=== PATIENT | female | born 1995 | race Caucasian/White ===

== ENCOUNTER → 2016-06-04 | Outpatient (CLI) | payer OTHER ==
--- NOTE | 2016-06-04 10:11 | US ---
EXAMINATION TYPE: US transvaginal DATE OF EXAM: 06/04/2016 8:32 AM COMPARISON: NONE CLINICAL HISTORY: 21-year-old female R10.2 Female Pelvic Pain, N83.20 Ovarian Cyst. felt enlarged ovary during pelvic exam TECHNIQUE: Multiple transvaginal sonographic images of the pelvis were obtained. Findings: Uterus: Anteverted measuring 9.0 x 5.0 x 5.7 cm. The myometrium is mildly heterogeneous. Endometrial Stripe: 0.8 cm. Right Ovary: 3.2 x 1.8 x 3.6 cm for volume of 10.5 mL. Follicular change is present. Left Ovary: 2.3 x 1.8 x 3.0 cm for a volume of 6.4 mL. Follicular change is present. No evident adnexal abnormality or cul-de-sac free fluid. IMPRESSION: Normal-sized ovaries with follicular change. No adnexal abnormality or pelvic free fluid.
== END | disposition home or self-care (01) ==
LOC: RADUSWWP 08:08
PROVIDERS: ATTEND Family Medicine
DX: R10.2 Pelvic and perineal pain (principal); N83.209 Unspecified ovarian cyst, unspecified side
CPT/HCPCS: 76830

== ENCOUNTER 2018-03-06 13:52 | Emergency (ER) | payer OTHER ==
[2018-03-06 14:02] VITALS: BP 96/56; PULSE 98; RESP 16; TEMP 97.5
[2018-03-06] MEDS ORDERED: ACETAMINOPHEN TAB 500 MG TAB PO STA (14:12)
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
== END 2018-03-06 15:48 | disposition home or self-care (01) ==
LOC: EC 13:52
DX: S29.9XXA Unspecified injury of thorax, initial encounter (principal); S59.901A Unspecified injury of right elbow, initial encounter; S00.12XA Contusion of left eyelid and periocular area, initial encounter; F17.200 Nicotine dependence, unspecified, uncomplicated; Y04.0XXA Assault by unarmed brawl or fight, initial encounter; Y92.009 Unspecified place in unspecified non-institutional (private) residence as the place of occurrence of the external cause
CPT/HCPCS: 99284

== ENCOUNTER 2020-07-01 04:08 | Inpatient (IN) | payer MEDICAID, OTHER ==
--- NOTE | 2020-07-01 04:09 | ED ---
Psych HPI - General Stated Complaint: Mental Health Time Seen by Provider: 07/01/20 04:09 Source: RN notes reviewed, old records reviewed Mode of arrival: EMS Limitations: no limitations - History of Present Illness Initial Comments: This is a 25-year-old female presented by EMS for suicidal and psychiatric illness. Patient does have superficial cuts to arrest and attempt has severe depression and attempt to harm herself MD Complaint: suicidal ideation, feels depressed -: unknown Associated Psychiatric Symptoms: depression, suicidal ideation History of same: Yes Quality: constant Improves With: none Associated Symptoms: denies other symptoms Treatments Prior to Arrival: placed on mental health hold If Self Harm: admits thoughts of self harm - Related Data Previous Rx's Medication Instructions Recorded Ibuprofen [Motrin] 600 mg PO Q6HR PRN #40 day 03/06/18 Allergies Allergy/AdvReac Type Severity Reaction Status Date / Time No Known Allergies Allergy Verified 07/01/20 04:18 Review of Systems ROS Statement: Those systems with pertinent positive or pertinent negative responses have been documented in the HPI. ROS Other: All systems not noted in ROS Statement are negative. Past Medical History Past Medical History: No Reported History History of Any Multi-Drug Resistant Organisms: None Reported Past Surgical History: Orthopedic Surgery Additional Past Surgical History / Comment(s): rt arm Past Psychological History: Anxiety, Bipolar, Schizophrenia Past Alcohol Use History: Occasional Past Drug Use History: Marijuana General Exam General appearance: alert, in no apparent distress, anxious Head exam: Present: atraumatic, normocephalic, normal inspection Eye exam: Present: normal appearance, PERRL, EOMI. Absent: scleral icterus, conjunctival injection, periorbital swelling ENT exam: Present: normal exam, mucous membranes moist Neck exam: Present: normal inspection. Absent: tenderness, meningismus, lymphadenopathy Respiratory exam: Present: normal lung sounds bilaterally. Absent: respiratory distress, wheezes, rales, rhonchi, stridor Cardiovascular Exam: Present: regular rate, normal rhythm, normal heart sounds. Absent: systolic murmur, diastolic murmur, rubs, gallop, clicks GI/Abdominal exam: Present: soft, normal bowel sounds. Absent: distended, tenderness, guarding, rebound, rigid Extremities exam: Present: normal inspection, full ROM, normal capillary refill. Absent: tenderness, pedal edema, joint swelling, calf tenderness Back exam: Present: normal inspection Neurological exam: Present: alert, oriented X3, CN II-XII intact Psychiatric exam: Present: normal affect, normal mood Skin exam: Present: warm, dry, intact, normal color. Absent: rash Course Vital Signs 07/01/20 04:10 Temperature 98.0 F Pulse Rate 115 H Respiratory 16 Rate Blood Pressure 147/101 O2 Sat by Pulse 100 Oximetry - Reevaluation(s) Reevaluation #1: 07/01/20 04:55 medically clear for psychiatric evaluation Medical Decision Making - Medical Decision Making 25 female seen in [facility] psychiatry, patient will be admitted for psychiatric evaluation and treatment Disposition Clinical Impression: Depression, Suicidal ideation Disposition: TRANSFER TO PSYCH HOSP/UNIT Condition: Fair Is patient prescribed a controlled substance at d/c from ED?: No Referrals: None,Stated [Primary Care Provider] - 1-2 days
[2020-07-01 07:15] LABS: Basophils % (A) 1 %; Eosinophils # (A) 0.1 k/uL (0-0.7); Eosinophils % (A) 1 %; HCT 45.7 % (34.0-46.0); HGB 15.2 gm/dL (11.4-16.0); Lymphocytes # (A) 2.4 k/uL (1.0-4.8); Lymphocytes % (A) 27 %; MCH 28.4 pg (25.0-35.0); MCHC 33.2 g/dL (31.0-37.0); MCV 85.6 fL (80.0-100.0); Mean Platelet Volume 9.2; Monocytes # (A) 0.3 k/uL (0-1.0); Monocytes % (A) 4 %; Neutrophils # (A) 6.2 k/uL (1.3-7.7); Neutrophils % (A) 68 %; Platelet Count 180 k/uL (150-450); RBC 5.34 m/uL (3.80-5.40); RDW 12.7 % (11.5-15.5); WBC 9.2 k/uL (3.8-10.6)
[2020-07-01 07:26] LABS: ALT 33 U/L (4-34); AST 28 U/L (14-36); African American GFR (CKD) >90 (>60 ml/min/1.73 sqM); Albumin 4.2 g/dL (3.5-5.0); Alkaline Phosphatase 66 U/L (38-126); Anion Gap 8 mmol/L; Blood Urea Nitrogen 13 mg/dL (7-17); Carbon Dioxide 25 mmol/L (22-30); Chloride 106 mmol/L (98-107); Glucose 103 mg/dL (74-99); Non-African American GFR(CKD) >90 (>60 ml/min/1.73 sqM); Potassium 3.9 mmol/L (3.5-5.1); Sodium 139 mmol/L (137-145); Total Bilirubin 0.6 mg/dL (0.2-1.3); Total Protein 7.1 g/dL (6.3-8.2)
[2020-07-01] MEDS ORDERED: MAG HYDROX/AL HYDROX/SIMETH 30 ML CUP PO PRN (07:33)
[2020-07-01] MEDS ORDERED: MAGNESIUM HYDROXIDE 2,400 MG/10 ML CUP PO PRN (07:33)
[2020-07-01] MEDS ORDERED: LORazepam 2 MG/ML INJ IM PRN (07:36)
[2020-07-01] MEDS ORDERED: haloperidoL 5 MG TAB PO PRN (07:37)
[2020-07-01] MEDS ORDERED: HALOPERIDOL LACTATE 5 MG/ML 1 ML VIAL IM PRN (07:37)
[2020-07-01] MEDS: NICOTINE 14MG/24HR PATCH TRANSDERM SCH ×2 (09:40→19:11)
[2020-07-01] MEDS: ACETAMINOPHEN TAB 325 MG TAB PO PRN ×2 (09:41→19:10)
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
[2020-07-01] MEDS: LORazepam 1 MG TAB PO PRN (19:10)
[2020-07-01] MEDS: DIVALPROEX 500 MG TABLET.DR PO SCH (22:44)
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
[2020-07-02 07:45] LABS: Basophils # (A) 0.1 k/uL (0-0.2); Basophils % (A) 1 %; Eosinophils # (A) 0.1 k/uL (0-0.7); Eosinophils % (A) 2 %; HCT 48.5 % (34.0-46.0); Lymphocytes # (A) 3.2 k/uL (1.0-4.8); Lymphocytes % (A) 38 %; MCH 29.2 pg (25.0-35.0); MCHC 33.1 g/dL (31.0-37.0); MCV 88.2 fL (80.0-100.0); Mean Platelet Volume 8.7; Monocytes # (A) 0.3 k/uL (0-1.0); Monocytes % (A) 4 %; Neutrophils # (A) 4.5 k/uL (1.3-7.7); Neutrophils % (A) 54 %; Platelet Count 174 k/uL (150-450); RDW 12.2 % (11.5-15.5); WBC 8.4 k/uL (3.8-10.6)
[2020-07-02 08:04] LABS: ALT 32 U/L (4-34); AST 28 U/L (14-36); African American GFR (CKD) >90 (>60 ml/min/1.73 sqM); Albumin 4.2 g/dL (3.5-5.0); Alkaline Phosphatase 63 U/L (38-126); Anion Gap 6 mmol/L; Blood Urea Nitrogen 11 mg/dL (7-17); Calcium 9.7 mg/dL (8.4-10.2); Carbon Dioxide 30 mmol/L (22-30); Chloride 104 mmol/L (98-107); Cholesterol 154 mg/dL (<200); Glucose 94 mg/dL (74-99); HDL Cholesterol 63 mg/dL (40-60); LDL Cholesterol,Calculated 79 mg/dL (0-99); Non-African American GFR(CKD) >90 (>60 ml/min/1.73 sqM); Potassium 4.4 mmol/L (3.5-5.1); Sodium 140 mmol/L (137-145); Total Bilirubin 0.8 mg/dL (0.2-1.3); Total Protein 7.3 g/dL (6.3-8.2); Triglycerides 59 mg/dL (<150)
[2020-07-02] MEDS: DIVALPROEX 500 MG TABLET.DR PO SCH (09:18)
[2020-07-02] MEDS: NICOTINE 14MG/24HR PATCH TRANSDERM SCH (09:21)
--- NOTE | 2020-07-02 12:14 | P.PN ---
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 Patient appears to have a disheveled appearance and appeared to be lethargic. She states that she came in the hospital because she thought that her boyfriend was cheating on her and brought another girl to a hotel room. She states that her boyfriend was able to explain this and showed her a text message. She claims that she has a history of cutting and has not been taking her Depakote for 2 months now and states that "it's because of covid I haven't been able to get into [facility]". She states that this time her mood has been gradually improving has some mild anxiety today. She states that she is feeling tired during the day and was willing to take her Depakote at nighttime instead. She states that she has been going to some groups. At this time patient denies any suicidal or homical ideations, intent or plan. Patient denies any auditory, visual hallucinations and denies any paranoia or delusions. Mental Status Exam: General Appearance: Patient appears to be lethargic, stated age is directable, and attempts to be cooperative. Disheveled appearance. Behavior: Patient is calmly seated without any agitated behavior. Speech: Patient's speech is fluent and nonpressured. Mood/Affect: Mood is depressed however improving mildly, affect is congruent and constricted. Suicidality/Homicidality: Patient denies having any suicidal or homicidal ideation intent or plan. Perceptions: Patient denies any visual hallucinations and denies any auditory hallucinations Though content/process: Poverty of content, vague at times. Logical. Memory and concentration: AOX3, grossly intact for the purposes of this session Judgment and insight: Poor, Improving mildly Assessment Adjustment disorder with disturbance of mood and behavior, rule out major depressive disorder recurrent vs. 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 Patient has signed adult voluntary form and medication consent and was placed in patient's chart. -Medications: changed depakote to night time dosing 1000mg qhs for mood stabilization. -When necessary Ativan and Haldol for agitation/aggression. -NRT - nicotine patch -SW on board for discharge planning. Encouraged the patient to participate in milieu. will attempt to work with patient and offer rehab vs outpt memo treatment otpions. likely d/c in 2-3 days.
[2020-07-02 16:40] LABS: Hemoglobin A1C 5.4 % (4.0-6.0)
[2020-07-02] MEDS: LORazepam 1 MG TAB PO PRN (20:49)
[2020-07-02] MEDS ORDERED: DIVALPROEX 500 MG TABLET.DR PO SCH (21:00)
[2020-07-03 00:11] LABS: Amorphous Sediment,Urine Occasional /hpf; Appearance,Urine Cloudy (Clear); Bacteria,Urine Rare /hpf; Bilirubin,Urine Negative (Negative); Blood,Urine Negative (Negative); Color,Urine Light Yellow; Glucose,Urine (UA) Negative (Negative); Ketones,Urine Negative (Negative); Leukocyte Esterase,Urine Moderate (Negative); Mucus,Urine Rare /hpf; Nitrite,Urine Negative (Negative); Protein,Urine Negative (Negative); RBC,Urine 2 /hpf (0-5); Specific Gravity,Urine 1.007 (1.001-1.035); Squamous Epithelial Cell,Urine 6 /hpf (0-4); Urobilinogen,Urine <2.0 mg/dL (<2.0); WBC,Urine 11 /hpf (0-5)
[2020-07-03 00:15] LABS: Amphetamine Screen,Urine Detected (NotDetected); Barbiturate Screen,Urine Not Detected (NotDetected); Benzodiazepines Screen,Urine Detected (NotDetected); Cocaine Screen,Urine Not Detected (NotDetected); Methadone Screen, Urine Not Detected (NotDetected); Opiate Screen,Urine Not Detected (NotDetected); Oxycodone Screen, Urine Not Detected (NotDetected); Phencyclidine Screen,Urine Not Detected (NotDetected); Tricyclic Antidepressant,Urine Not Detected (NotDetected); Urn Cannabinoid Scrn Not Detected (NotDetected)
[2020-07-03 07:17] VITALS: BP 127/83; PULSE 67; RESP 17; TEMP 98
[2020-07-03] MEDS: NICOTINE 14MG/24HR PATCH TRANSDERM SCH (09:09)
--- NOTE | 2020-07-03 09:49 | P.DS ---
Providers Date of admission: 07/01/20 07:31 Expected date of discharge: 07/03/20 Attending physician: Jeramie Olivier MD Consults: 07/01/20 07:33 Consult Physician Routine Consulting Provider: [facility] Consult Reason/Comments: h and p Do you want consulting provider notified?: Yes, Notify in am Primary care physician: Stated None - Discharge Diagnosis(es) (1) Adjustment disorder with mixed disturbance of emotions and conduct Current Visit: Yes Status: Acute Priority: High (2) Borderline personality disorder Current Visit: Yes Status: Acute Priority: High (3) Methamphetamine abuse Current Visit: Yes Status: Acute Priority: Medium (4) Cannabis use disorder, mild, abuse Current Visit: Yes Status: Acute Priority: Medium (5) Nicotine dependence Current Visit: Yes Status: Acute Priority: Low Hospital Course: Admission HPI: Admission note was completed by Dr. Taveras "She is a 25-year-old single female admitted to the psychiatric unit involuntarily. I reviewed the medical record and interviewed the patient. Her "ex-boyfriend" completed a Petition for hospitalization that read "cutting her arms with knife and razor blades. Text message to my phone I'm going to kill myself and video it. I'm going to kill everyone. lEizabeth's family told me she needs to attend the [facility] for her meds. She has been there once in 2 years." The patient was difficult interview and that her responses to questions were vague and nonspecific. She ruminated about misunderstanding a text message that she read on her boyfriend's phone. She mumbled something about him obtaining a motel room for a female friend. I had very difficult time understanding what had occurred but she apparently thought that he was having an affair with another woman. She became angry and distressed and cut her left forearm with a knife and a razor blade. She acknowledged that she texted her boyfriend that she was going kill herself and that she had threatened to kill others. She also perseverated about needing to get back on her medications and talked about having been prescribed Depakote and lithium in the past. She was otherwise unable to or unwilling to provide much information about her psychiatric treatment history or recent medications other than the Depakote and lithium. She acknowledged that she feels depressed but is currently denying suicidal ideation plan or intent. She denied that she cut herself in a suicide attempt. I could not get away clear history of a she has experienced periods of elevated mood or sustained irritability suggestive of lyle or hypomania. She complains of chronic anxiety that fluctuates in intensity but does not reach crescendo suggestive of panic attack. She denied experiencing such psychotic symptoms as auditory, visual or olfactory hallucinations, ideas of reference, thought insertion, thought broadcasting or thought control. She denied use of alcohol or drugs with the exception of tobacco and marijuana." Hospital course: Upon admission to the unit patient was initially directable and agreeable to commence treatment and signed adult voluntary form. Patient got along well with other patients on the unit and followed unit protocol. Patient was compliant with the medications and denied any side effects throughout hospital course. Patient was started on Depakote and titrated up to a dose of 750 mg daily at bedtime for mood stabilization/agitation. Patient spoke of her stressors and engaged in therapy both group and individual. Patient for the most part mainly isolated in her room during her hospitalization and claims that she needed to maintain a sleep schedule that is conducive to nighttime shift work as she claims that she will be going back to work. Patient was also seen by medical team for history and physical exam. Throughout the course of the hospitalization patient gradually improved with regards to mood, anxiety, irritability, sleep and demonstrated mild improvement in insight and judgment. On the day of discharge patient denied any suicidal or homicidal ideations intent or plan denied any auditory or visual hallucinations. Patient endorsed wanting to live for her health and her future. The patient denied any access to guns or weapons. Patient denied any paranoia and did not endorse any delusions. Patient does have a significant history of substance abuse and was counseled on abstaining from all substances including alcohol and marijuana. Patient was offered however declined inpatient substance-abuse rehab. Patient was also counseled on the medications and need for regular compliance and was encouraged to follow-up with their outpatient appointment for mental health and also for primary care. Prior to discharge a family meeting will be arranged with patient's boyfriend whom she lives with by social sciences department chair to answer any questions and ensure safety upon discharge. Mental status exam: General Appearance: Patient appears to be thin, stated age is alert, directable and attempts to be cooperative. Patient is in no acute distress and has improved hygiene and grooming Behavior: Patient is calmly seated without any agitated behavior. Speech: Patient's speech is fluent and nonpressured. Mood/Affect: Patient reports their mood is "better", affect is congruent Suicidality/Homicidality: Patient denies having any suicidal or homicidal ideation intent or plan. Perceptions: Patient denies any auditory or visual hallucinations. Though content/process: There is no evidence of any delusional thought content and thought process is linear and goal-directed. Memory and concentration: AOX3, grossly intact for the purposes of this session. Can spell "WORLD" backwards correctly. Judgment and insight: chronically poor, however has improved with guarded prognosis Impression: Adjustment disorder with disturbances of mood and conduct Borderline personality disorder Methamphetamine use disorder severe Cannabis use disorder Nicotine dependence Plan: -Continue with discharge today as patient has improved and stabilized psychiatrically and is not currently an imminent threat to herself and/or others. Patient will remain at chronically elevated risk for harm to self and/or others due to her impulsivity and polysubstance abuse. -Continue medications: Depakote 750 mg daily at bedtime for mood stabilization/agitation. -Patient was counseled on the need for medication compliance and appropriate follow-up at mental health and also primary care for medical issues. Patient verbalized understanding and agreed. -Social work to arrange for and conduct family meeting to ensure safety upon discharge and answer any questions/concerns. Social work also to arrange for cole garcias follow up appointments with [facility] for psychiatric care along with follow up with primary care provider. -Patient counseled on abstaining from recreational drugs and marijuana and alcohol. Was informed/educated on the adverse effects on their physical and mental health. Patient verbally agreed and understood. Patient was offered substance abuse treatment however declined at this time. -Patient was instructed to return to the hospital or seek immediate medical care if their psychiatric or medical symptoms do worsen or reoccur. Allergies Allergy/AdvReac Type Severity Reaction Status Date / Time No Known Allergies Allergy Verified 07/01/20 19:05 Laboratory Results WBC 8.4 k/uL (3.8-10.6) 07/02/20 07:10 RBC 5.50 m/uL (3.80-5.40) H 07/02/20 07:10 Hgb 16.0 gm/dL (11.4-16.0) 07/02/20 07:10 Hct 48.5 % (34.0-46.0) H 07/02/20 07:10 MCV 88.2 fL (80.0-100.0) 07/02/20 07:10 MCH 29.2 pg (25.0-35.0) 07/02/20 07:10 MCHC 33.1 g/dL (31.0-37.0) 07/02/20 07:10 RDW 12.2 % (11.5-15.5) 07/02/20 07:10 Plt Count 174 k/uL (150-450) 07/02/20 07:10 MPV 8.7 07/02/20 07:10 Neutrophils % 54 % 07/02/20 07:10 Lymphocytes % 38 % 07/02/20 07:10 Monocytes % 4 % 07/02/20 07:10 Eosinophils % 2 % 07/02/20 07:10 Basophils % 1 % 07/02/20 07:10 Neutrophils # 4.5 k/uL (1.3-7.7) 07/02/20 07:10 Lymphocytes # 3.2 k/uL (1.0-4.8) 07/02/20 07:10 Monocytes # 0.3 k/uL (0-1.0) 07/02/20 07:10 Eosinophils # 0.1 k/uL (0-0.7) 07/02/20 07:10 Basophils # 0.1 k/uL (0-0.2) 07/02/20 07:10 Sodium 140 mmol/L (137-145) 07/02/20 07:10 Potassium 4.4 mmol/L (3.5-5.1) 07/02/20 07:10 Chloride 104 mmol/L (98-107) 07/02/20 07:10 Carbon Dioxide 30 mmol/L (22-30) 07/02/20 07:10 Anion Gap 6 mmol/L 07/02/20 07:10 BUN 11 mg/dL (7-17) 07/02/20 07:10 Creatinine 0.70 mg/dL (0.52-1.04) 07/02/20 07:10 Est GFR (CKD-EPI)AfAm >90 (>60 ml/min/1.73 sqM) 07/02/20 07:10 Est GFR (CKD-EPI)NonAf >90 (>60 ml/min/1.73 sqM) 07/02/20 07:10 Glucose 94 mg/dL (74-99) 07/02/20 07:[address] Glu mg/dL 108 07/02/20 07:10 Hemoglobin A1c 5.4 % (4.0-6.0) 07/02/20 07:10 Calcium 9.7 mg/dL (8.4-10.2) 07/02/20 07:10 Total Bilirubin 0.8 mg/dL (0.2-1.3) 07/02/20 07:10 AST 28 U/L (14-36) 07/02/20 07:10 ALT 32 U/L (4-34) 07/02/20 07:10 Alkaline Phosphatase 63 U/L (38-126) 07/02/20 07:10 Total Protein 7.3 g/dL (6.3-8.2) 07/02/20 07:10 Albumin 4.2 g/dL (3.5-5.0) 07/02/20 07:10 Triglycerides 59 mg/dL (<150) 07/02/20 07:10 Cholesterol 154 mg/dL (<200) 07/02/20 07:10 LDL Cholesterol, Calc 79 mg/dL (0-99) 07/02/20 07:10 HDL Cholesterol 63 mg/dL (40-60) H 07/02/20 07:10 TSH 0.406 mIU/L (0.465-4.680) L 07/02/20 07:10 Urine Color Light Yellow 07/02/20 23:25 Urine Appearance Cloudy (Clear) H 07/02/20 23:25 Urine pH 7.0 (5.0-8.0) 07/02/20 23:25 Ur Specific [place] 1.007 (1.001-1.035) 07/02/20 23:25 Urine Protein Negative (Negative) 07/02/20 23:25 Urine Glucose (UA) Negative (Negative) 07/02/20 23:25 Urine Ketones Negative (Negative) 07/02/20 23:25 Urine Blood Negative (Negative) 07/02/20 23:25 Urine Nitrite Negative (Negative) 07/02/20 23:25 Urine Bilirubin Negative (Negative) 07/02/20 23:25 Urine Urobilinogen <2.0 mg/dL (<2.0) 07/02/20 23:25 Ur Leukocyte Esterase Moderate (Negative) H 07/02/20 23:25 Urine RBC 2 /hpf (0-5) 07/02/20 23:25 Urine WBC 11 /hpf (0-5) H 07/02/20 23:25 Ur Squamous Epith Cells 6 /hpf (0-4) H 07/02/20 23:25 Amorphous Sediment Occasional /hpf (None) H 07/02/20 23:25 Urine Bacteria Rare /hpf (None) H 07/02/20 23:25 Urine Mucus Rare /hpf (None) H 07/02/20 23:25 Urine HCG, Qual Not Detected (Not Detectd) 07/02/20 23:29 Urine Opiates Screen Not Detected (NotDetected) 07/02/20 23:29 Ur Oxycodone Screen Not Detected (NotDetected) 07/02/20 23:29 Urine Methadone Screen Not Detected (NotDetected) 07/02/20 23:29 Ur Propoxyphene Screen Not Detected (NotDetected) 07/02/20 23:29 Ur Barbiturates Screen Not Detected (NotDetected) 07/02/20 23:29 U Tricyclic Antidepress Not Detected (NotDetected) 07/02/20 23:29 Ur Phencyclidine Scrn Not Detected (NotDetected) 07/02/20 23:29 Ur Amphetamines Screen Detected (NotDetected) H 07/02/20 23:29 U Methamphetamines Scrn Detected (NotDetected) H 07/02/20 23:29 U Benzodiazepines Scrn Detected (NotDetected) H 07/02/20 23:29 Urine Cocaine Screen Not Detected (NotDetected) 07/02/20 23:29 U Marijuana (THC) Screen Not Detected (NotDetected) 07/02/20 23:29 Coronavirus (PCR) Not Detected (Not Detectd) 07/01/20 07:02 Vital Signs Temp 98.0 F 07/03/20 06:00 Pulse 67 07/03/20 06:00 Resp 17 07/03/20 06:00 BP 127/83 07/03/20 06:00 Pulse Ox 97 07/03/20 06:00 Patient Condition at Discharge: Stable Plan - Discharge Summary Discharge Rx Participant: No New Discharge Prescriptions: New Divalproex ER [Depakote ER] 750 mg PO HS 30 Days tab.er.24h Nicotine 14Mg/24Hr Patch [Habitrol] 1 patch TRANSDERM DAILY 14 Days patch Acetaminophen Tab [Tylenol] 650 mg PO Q4HR PRN tab PRN Reason: Pain/Discomfort Discharge Medication List Acetaminophen Tab [Tylenol] 650 mg PO Q4HR PRN tab 07/03/20 [Rx] Divalproex ER [Depakote ER] 750 mg PO HS 30 Days tab.er.24h 07/03/20 [Rx] Nicotine 14Mg/24Hr Patch [Habitrol] 1 patch TRANSDERM DAILY 14 Days patch 07/03/20 [Rx] Follow up Appointment(s)/Referral(s): None,Stated [Primary Care Provider] - 1-2 days Activity/Diet/Wound Care/Special Instructions: Activity and diet as tolerated. Avoid the use of street drugs and alcohol. Take all medications as prescribed. When you are in need of refills on your medications please contact your medical provider and/or outpatient psychiatrist to have this done. Please go to scheduled outpatient appointment for aftercare treatment. If symptoms return or become worse, call the crisis line at and/or go to the nearest emergency room for evaluation. Discharge Disposition: HOME SELF-CARE
[2020-07-03] MEDS ORDERED: DIVALPROEX 250 MG TABLET.DR PO SCH (21:00)
== END 2020-07-03 16:11 | disposition home or self-care (01) | DRG 882 ==
LOC: EC 04:08 → 3MHU 07:31
PROVIDERS: ADMIT Psychiatry & Neurology Psychiatry; ATTEND Psychiatry & Neurology Psychiatry
DX: F43.25 Adjustment disorder with mixed disturbance of emotions and conduct (principal); R45.851 Suicidal ideations; G40.909 Epilepsy, unspecified, not intractable, without status epilepticus; F60.3 Borderline personality disorder; F20.9 Schizophrenia, unspecified; F31.9 Bipolar disorder, unspecified; F12.10 Cannabis abuse, uncomplicated; Z20.822 Contact with and (suspected) exposure to COVID-19; F17.200 Nicotine dependence, unspecified, uncomplicated; F41.9 Anxiety disorder, unspecified; R45.87 Impulsiveness; F15.90 Other stimulant use, unspecified, uncomplicated; J34.89 Other specified disorders of nose and nasal sinuses; Y04.0XXA Assault by unarmed brawl or fight, initial encounter; Z91.5 Personal history of self-harm; Z56.0 Unemployment, unspecified; Z65.3 Problems related to other legal circumstances
CPT/HCPCS: 36415; 80053; 80061; 80306; 81001; 81025; 83036; 84443; 85025; 87635; 99285

== ENCOUNTER 2020-07-04 18:18 | Emergency (ER) | payer OTHER ==
[2020-07-04] MEDS ORDERED: HYDROcodone/APAP 5-325MG 1 EACH TAB PO STA (18:21)
[2020-07-04] MEDS ORDERED: IBUPROFEN 600 MG TAB PO STA (18:21)
[2020-07-04 18:28] VITALS: TEMP 98.3
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
[2020-07-04 20:43] VITALS: BP 126/84; PULSE 100; RESP 16
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
== END 2020-07-04 21:49 | disposition home or self-care (01) ==
LOC: EC 18:18
DX: T14.90XA Injury, unspecified, initial encounter (principal); F17.200 Nicotine dependence, unspecified, uncomplicated; V89.2XXA Person injured in unspecified motor-vehicle accident, traffic, initial encounter; Y92.410 Unspecified street and highway as the place of occurrence of the external cause
CPT/HCPCS: 36415; 70450; 72125; 84703; 99285

== ENCOUNTER 2022-03-25 22:53 | Emergency (ER) | payer OTHER ==
[2022-03-25 23:28] VITALS: BP 123/82; PULSE 100; RESP 20; TEMP 97
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
[2022-03-26] MEDS ORDERED: LIDOCAINE 1% INJ 10MG/ML (30 ML VIAL-PF) SQ ONE (00:50)
== END 2022-03-26 00:22 | disposition left against medical advice (07) ==
LOC: EC 22:53
DX: Z53.21 Procedure and treatment not carried out due to patient leaving prior to being seen by health care provider (principal)
CPT/HCPCS: 99499

== ENCOUNTER 2022-08-03 14:59 | Emergency (ER) | payer OTHER ==
[2022-08-03 15:13] VITALS: BP 156/97; PULSE 116; RESP 16; TEMP 98.2
[2022-08-03] MEDS ORDERED: SODIUM CHLORIDE 0.9% 1,000 ML IV STA (15:14)
[2022-08-03] MEDS ORDERED: Rhogam IMMUNE GLOBULIN 1,500 UNIT/1 ML IM ONE (15:30)
[2022-08-03 16:24] LABS: Appearance,Urine Cloudy (Clear); Bilirubin,Urine Negative (Negative); Blood,Urine Negative (Negative); Color,Urine Yellow; Glucose,Urine (UA) Negative (Negative); Ketones,Urine Negative (Negative); Leukocyte Esterase,Urine Small (Negative); Mucus,Urine Occasional /hpf; Nitrite,Urine Negative (Negative); Protein,Urine Negative (Negative); RBC,Urine <1 /hpf (0-5); Specific Gravity,Urine 1.015 (1.001-1.035); Squamous Epithelial Cell,Urine 7 /hpf (0-4); WBC,Urine <1 /hpf (0-5)
--- NOTE | 2022-08-03 16:26 | ED ---
Female Urogenital HPI - General Chief complaint: Vaginal Bleeding Stated complaint: 11 wks , vaginal bleeding Time Seen by Provider: 08/03/22 15:13 Source: patient Mode of arrival: ambulatory Limitations: no limitations - History of Present Illness Initial comments: Patient is a 27 year old A0 female at 11 weeks who presents to the emergency department for vaginal bleeding. Patient reports intermittent vaginal bleeding for the past 2 days. She has soaked one to 2 tampons a day. She has mild lower abdominal cramping. No fever, chills, nausea, vomiting, burning with urination. Patient states she has had vaginal bleeding during this previously. She has never received RhoGAM. She does not have an book packer but states she has had a normal ultrasound here in the emergency department. - Related Data Home Medications Medication Instructions Recorded Confirmed No Known Home Medications 06/20/22 06/20/22 Allergies Allergy/AdvReac Type Severity Reaction Status Date / Time chocolate flavor Allergy Anaphylaxis Verified 08/03/22 15:12 rubbing alcohol AdvReac Rash/Hives Uncoded 06/20/22 15:01 Review of Systems ROS Statement: Those systems with pertinent positive or pertinent negative responses have been documented in the HPI. ROS Other: All systems not noted in ROS Statement are negative. Past Medical History Past Medical History: Seizure Disorder Additional Past Medical History / Comment(s): She reported having a seizure 1 week ago and that she takes Depakote for that. lupus History of Any Multi-Drug Resistant Organisms: None Reported Past Surgical History: Orthopedic Surgery Additional Past Surgical History / Comment(s): rt arm Past Psychological History: Anxiety, Bipolar, Schizophrenia Smoking Status: Current every day smoker Past Alcohol Use History: Occasional Past Drug Use History: Marijuana General Exam Limitations: no limitations General appearance: alert, in no apparent distress Head exam: Present: atraumatic, normocephalic, normal inspection Eye exam: Present: normal appearance, PERRL, EOMI. Absent: scleral icterus, conjunctival injection, periorbital swelling ENT exam: Present: mucous membranes moist Respiratory exam: Present: normal lung sounds bilaterally. Absent: respiratory distress, wheezes, rales, rhonchi, stridor Cardiovascular Exam: Present: regular rate, normal rhythm, normal heart sounds. Absent: systolic murmur, diastolic murmur, rubs, gallop, clicks Neurological exam: Present: alert, oriented X3, CN II-XII intact Psychiatric exam: Present: normal affect, normal mood Skin exam: Present: warm, dry, intact, normal color. Absent: rash Course Vital Signs 08/03/22 15:11 Temperature 98.2 F Pulse Rate 116 H Respiratory 16 Rate Blood Pressure 156/97 O2 Sat by Pulse 100 Oximetry Medical Decision Making - Medical Decision Making Was pt. sent in by a medical professional or institution (, PA, BLOWER OPERATOR, urgent care, hospital, or [place] [facility] facility...) When possible be specific @ -[No] Did you speak to anyone other than the patient for history (EMS, parent, family, police, friend...)? What history was obtained from this source @ -[No] Did you review nursing and triage notes (agree or disagree)? Why? @ -[I reviewed and agree with nursing and triage notes] Were old charts reviewed (outside hosp., previous admission, EMS record, old EKG, old radiological studies, urgent care reports/EKG's, [place] [facility] facility records)? Report findings @ -reviewed US on 06/25 showing no definite intrauterine gestational sac. Differential Diagnosis (chest pain, altered mental status, abdominal pain women, abdominal pain men, vaginal bleeding, weakness, fever, dyspnea, syncope, headache, dizziness, GI bleed, back pain, seizure, CVA, palpatations, mental health)? @ -Differential Vaginal Bleeding: Spontaneous , threatened , molar , ectopic , bloody show, incompetent cervix, abruptioplacenta, placenta previa, uterine rupture, dysfunctional uterine bleeding, hemorrhage, uterine fibroids, this is not meant to be an all-inclusive list. EKG interpreted by me (3pts min.). @ -[As above] X-rays interpreted by me (1pt min.). @ -[None done] CT interpreted by me (1pt min.). @ -[None done] U/S interpreted by me (1pt. min.). @ -No. Ultrasound report shows no evidence of intrauterine gestational sac. What testing was considered but not performed or refused? (CT, X-rays, U/S, labs)? Why? @ -[None] What meds were considered but not given or refused? Why? @ -[None] Did you discuss the management of the patient with other professionals (professionals i.e. , PA, BLOWER OPERATOR, lab, RT, psych nurse, social worker assistant, iron pourer, teacher, compliance review officer, onsite case manager)? Give summary @ -[No] Was smoking cessation discussed for >3mins.? @ -[No] Was critical care preformed (if so, how long)? @ -[No] Were there social determinants of health that impacted care today? How? (Homelessness, low income, unemployed, alcoholism, drug addiction, transportation, low edu. Level, literacy, decrease access to med. care, skilled nursing, rehab)? @ -[No] Was there de-escalation of care discussed even if they declined (Discuss DNR or withdrawal of care, Hospice)? DNR status @ -[No] What co-morbidities impacted this encounter? (DM, HTN, Smoking, COPD, CAD, Cancer, CVA, ARF, Chemo, Hep., AIDS, mental health diagnosis, sleep apnea, morbid obesity)? @ -[None] Was patient admitted / discharged? Hospital course, mention meds given and route, prescriptions, significant lab abnormalities, going to OR and other pertinent info. @ -Patient presenting for threatened miscarriage, She is hemodynamically stable. The abdomen is soft and nontender. US shows no evidence of intrauterine gestational sac. The adnexa appear WNL. RhoGam ordered and when nurse entered room for administration, patient was gone. Patient eloped which is what she did during her last visit. Again patient did not get RhoGam or discharge instructions. Undiagnosed new problem with uncertain prognosis? @ -[No] Drug Therapy requiring intensive monitoring for toxicity (Heparin, Nitro, Insulin, Cardizem)? @ -[No] Were any procedures done? @ -[No] Diagnosis/symptom? @ -threatened miscarriage Acute, or Chronic, or Acute on Chronic? @ -acute Uncomplicated (without systemic symptoms) or Complicated (systemic symptoms)? @ -uncomplicated Side effects of treatment? @ -[No] Exacerbation, Progression, or Severe Exacerbation? @ -[No] Poses a threat to life or bodily function? How? (Chest pain, [place], [place], pneumonia, PE, COPD, DKA, ARF, appy, cholecystitis, CVA, Diverticulitis, Homicidal, Suicidal, threat to staff... and all critical care pts) @ -Not currently Dr. Zarco is my attending - Lab Data Lab Results 08/03/22 08/03/22 Range/Units 15:26 15:26 Urine Color Yellow Urine Appearance Cloudy H (Clear) Urine pH 7.0 (5.0-8.0) Ur Specific [place] 1.015 (1.001-1.035) Urine Protein Negative (Negative) Urine Glucose (UA) Negative (Negative) Urine Ketones Negative (Negative) Urine Blood Negative (Negative) Urine Nitrite Negative (Negative) Urine Bilirubin Negative (Negative) Urine Urobilinogen 3.0 (<2.0) mg/dL Ur Leukocyte Esterase Small H (Negative) Urine RBC <1 (0-5) /hpf Urine WBC <1 (0-5) /hpf Ur Squamous Epith Cells 7 H (0-4) /hpf Urine Mucus Occasional H (None) /hpf Blood Type O Negative Blood Type Recheck O Neg Bld Type Recheck Status No Antibody Screen NEGATIVE Disposition Clinical Impression: Threatened Disposition: Left Against Medical Advice Condition: Undetermined Referrals: None,Stated [Primary Care Provider] - 1-2 days
--- NOTE | 2022-08-03 16:56 | US ---
EXAMINATION TYPE: Transabdominal DATE OF EXAM: 08/03/2022 4:41 PM COMPARISON: NONE CLINICAL HISTORY: vaginal bleeding preg 11 weeks. Vaginal bleeding EXAM PERFORMED: Transabdominal (TA) EXAM MEASUREMENTS: GESTATIONAL AGE / DATING Physician Established: Not yet established Dates by LMP: unknown Dates by First Scan: unable to date on prior exam Dates by Current Scan for: No IUP seen at this time MATERNAL ANATOMY Uterus: 7.8 x 5.1 x 5.6cm, hypoechoic area left body of uterus = 1.5 x 1.0 x 1.2cm Right Ovary: 2.3 x 1.6 x 1.2cm, limited evaluation due to overlying bowel content Left Ovary: 3.9 x 1.7 x 1.6cm Post CDS / Adnexa: appears wnl Presence of free fluid: no Presence of corpus luteal cyst: no Presence of subchorionic bleed: no GESTATION / SURVEY IUP: No IUP seen at this time Date of LMP: unknown Beta HcG (if available): Not available at this time IMPRESSION: 1. No evidence of intrauterine gestational sac, correlate with B-hCG. If positive, this could represe nt early , ectopic or spontaneous . Follow up pelvic ultrasound in 5-7 day s and serial beta hCG studies are recommended. 2. Suspected underlying uterine fibroid.
== END 2022-08-03 17:40 | disposition left against medical advice (07) ==
LOC: EC 14:59
DX: O20.0 Threatened abortion (principal); O99.331 Smoking (tobacco) complicating pregnancy, first trimester; F17.200 Nicotine dependence, unspecified, uncomplicated; O99.321 Drug use complicating pregnancy, first trimester; F12.90 Cannabis use, unspecified, uncomplicated; Z91.018 Allergy to other foods; Z91.048 Other nonmedicinal substance allergy status; Z3A.11 11 weeks gestation of pregnancy
CPT/HCPCS: 86900; 86901; 86850; 81001; 76801; 99284; 96360; J2790

== ENCOUNTER 2023-04-05 00:30 | Outpatient (CLI) | payer OTHER ==
[2023-04-05] MEDS ORDERED: LACTATED RINGERS 1,000 ML IV SCH (01:15)
[2023-04-05 01:46] LABS: Creatinine,Urine Random 234.2 mg/dL
[2023-04-05 01:50] LABS: ALT 31 U/L (4-34); AST 35 U/L (14-36); African American GFR (CKD) >90 (>60 ml/min/1.73 sqM); Blood Urea Nitrogen 13 mg/dL (7-17); Glucose 73 mg/dL (74-99); LDH 235 U/L (120-246); Non-African American GFR(CKD) >90 (>60 ml/min/1.73 sqM); Uric Acid 7.1 mg/dL (3.7-7.4)
[2023-04-05 01:53] LABS: INR 0.8 (<1.2); Partial Thromboplastin Time 23.6 sec (22.0-30.0); Prothrombin Time 9.2 sec (10.0-12.5)
[2023-04-05 02:06] LABS: Basophils # (A) 0.1 k/uL (0-0.2); Basophils % (A) 1 %; Eosinophils # (A) 0.1 k/uL (0-0.7); Eosinophils % (A) 1 %; HCT 38.1 % (34.0-46.0); HGB 13.1 gm/dL (11.4-16.0); Lymphocytes # (A) 2.5 k/uL (1.0-4.8); Lymphocytes % (A) 22 %; MCH 29.8 pg (25.0-35.0); MCHC 34.3 g/dL (31.0-37.0); MCV 86.9 fL (80.0-100.0); Mean Platelet Volume 12.2; Monocytes # (A) 0.4 k/uL (0-1.0); Monocytes % (A) 4 %; Neutrophils # (A) 8.2 k/uL (1.3-7.7); Neutrophils % (A) 71 %; Platelet Count 131 k/uL (150-450); RBC 4.38 m/uL (3.80-5.40); RDW 13.6 % (11.5-15.5); WBC 11.5 k/uL (3.8-10.6)
[2023-04-05 02:22] LABS: Bacteria,Urine Rare /hpf; Mucus,Urine Occasional /hpf; RBC,Urine >182 /hpf (0-5); Squamous Epithelial Cell,Urine 55 /hpf (0-4); WBC,Urine 4 /hpf (0-5)
[2023-04-05 02:23] LABS: Cocaine Screen,Urine Not Detected (NotDetected); Phencyclidine Screen,Urine Not Detected (NotDetected); Urn Cannabinoid Scrn Not Detected (NotDetected)
[2023-04-05 02:24] LABS: Amphetamine Screen,Urine Detected (NotDetected); Barbiturate Screen,Urine Not Detected (NotDetected); Benzodiazepines Screen,Urine Not Detected (NotDetected); Methadone Screen, Urine Not Detected (NotDetected); Opiate Screen,Urine Not Detected (NotDetected); Oxycodone Screen, Urine Not Detected (NotDetected); Tricyclic Antidepressant,Urine Not Detected (NotDetected)
[2023-04-05 02:39] LABS: Color,Urine Yellow
[2023-04-05 02:40] LABS: Appearance,Urine Slightly Cloudy (Clear); Bilirubin,Urine Negative (Negative); Blood,Urine Large (Negative); Glucose,Urine (UA) Negative (Negative); Ketones,Urine Negative (Negative); Leukocyte Esterase,Urine Negative (Negative); Nitrite,Urine Negative (Negative); Protein,Urine 4+ (Negative); Urobilinogen,Urine <2.0 mg/dL (<2.0)
[2023-04-05 03:19] LABS: Large Platelets Present
[2023-04-05 04:09] VITALS: BP 169/116; PULSE 115; RESP 16; TEMP 98
--- NOTE | 2023-04-05 06:40 | US ---
EXAM: US Second or Third Trimester , Transabdominal CLINICAL HISTORY: ITS.REASON US Reason: no care TECHNIQUE: Real-time transabdominal obstetrical ultrasound of the maternal pelvis and a second or third trimester with image documentation. COMPARISON: No relevant prior studies available. FINDINGS: Fetus: A single intrauterine fetus Heart rate: 138 bpm. Presentation: Cephalic Placenta: Posterior. No abruption. Amniotic fluid: 16.22 cm. Maximal vertical pocket measures 7.2 cm. Anatomy: Intracranial/face anatomy not seen. Spinal anatomy not seen. Abdominal anatomy not seen. Extremities not seen. Four-chamber heart not seen. Umbilical cord not seen. BIOMETRICS Gestational age: 36 weeks and 1 day CHANDRAKANT: 05/02[birth year]2023 EFW: 2804 g BPD: 9.0 cm 36 weeks and 4 days HC: 32.24 cm 36 weeks and 3 days AC: 32.19 cm 36 weeks and 1 day FL: 624 cm 35 weeks and 1 day MATERNAL: Uterus: Unremarkable. No myometrial mass. Cervix: Unremarkable as visualized. Closed. Free fluid: No free fluid. IMPRESSION: 1. A single intrauterine fetus is identified in cephalic presentation with a sonographic gestational age of 36 weeks and 1 day. 2. Placenta is posterior with no evidence of previa or abruption. 3. Adequate amniotic fluid volume with CHUCK measuring 16.2 cm.
[2023-04-07 15:45] LABS: HIV 2 AB Non-Reactive (Non-Reactive); HIV AB P24 Non-Reactive (Non-Reactive); HIV P24 AG Non-Reactive (Non-Reactive)
== END 2023-04-05 03:00 | disposition left against medical advice (07) ==
LOC: FBPOP 00:30 → UNDOADMIN 02:30 → 4FBP 02:30 → UNDODISIN 03:00 → FBPOP 03:00
PROVIDERS: ATTEND Obstetrics & Gynecology
DX: Z53.9 Procedure and treatment not carried out, unspecified reason (principal)
CPT/HCPCS: 36415; 76805; 80306; 81001; 82565; 82570; 82947; 83615; 84156; 84450; 84460; 84520; 84550; 85025; 85384; 85610; 85730; 86762; 86780; 87340; 87390; 96360; 99215

== ENCOUNTER 2023-04-05 23:35 | Inpatient (IN) | payer OTHER ==
[2023-04-06] MEDS ORDERED: METHYLERGONOVINE 0.2 MG/ML 1 ML AMP IM PRN (01:07)
[2023-04-06] MEDS ORDERED: TERBUTALINE 1 MG/ML VIAL SQ PRN (01:07)
[2023-04-06] MEDS ORDERED: OXYTOCIN 10 UNIT/ML 1 ML VIAL IM PRN (01:07)
[2023-04-06] MEDS ORDERED: miSOPROStoL 200 MCG TAB PO PRN (01:07)
[2023-04-06] MEDS ORDERED: TRANEXAMIC 1,000 MG/100ML-NACL 1,000 MG in EMPTY BAG 1 BAG IV PRN (01:07)
[2023-04-06] MEDS ORDERED: LIDOCAINE 0.5% (PF) 5 MG/ML (50 ML SDV) SQ PRN (01:07)
[2023-04-06] MEDS ORDERED: CARBOPROST TROMETHAMINE 250 MCG/ML 1 ML AMP IM PRN (01:07)
[2023-04-06] MEDS ORDERED: OXYTOCIN 30 UNITS/500 ML NS 30 UNIT in SALINE 1 500ML.BAG IV SCH ×2 (01:15→05:30)
[2023-04-06] MEDS: LACTATED RINGERS 1,000 ML IV SCH ×2 (01:25→01:27)
[2023-04-06] MEDS ORDERED: PENICILLIN G POTASSIUM 5,000,000 UNIT in DEXTROSE 5% IN WATER 100 ML IVPB ONE ×2 (01:30)
[2023-04-06 01:39] LABS: Basophils # (A) 0.1 k/uL (0-0.2); Basophils % (A) 1 %; Eosinophils # (A) 0.1 k/uL (0-0.7); Eosinophils % (A) 1 %; HCT 38.3 % (34.0-46.0); HGB 12.9 gm/dL (11.4-16.0); Lymphocytes # (A) 2.2 k/uL (1.0-4.8); Lymphocytes % (A) 21 %; MCH 29.5 pg (25.0-35.0); MCHC 33.7 g/dL (31.0-37.0); MCV 87.6 fL (80.0-100.0); Mean Platelet Volume 12.8; Monocytes # (A) 0.3 k/uL (0-1.0); Monocytes % (A) 3 %; Neutrophils # (A) 7.6 k/uL (1.3-7.7); Neutrophils % (A) 73 %; Platelet Count 121 k/uL (150-450); RBC 4.38 m/uL (3.80-5.40); RDW 13.6 % (11.5-15.5); WBC 10.4 k/uL (3.8-10.6)
[2023-04-06] MEDS ORDERED: ROPIVACAINE 5 MG/ML 30 ML VIAL ONE (01:41)
[2023-04-06] MEDS ORDERED: SODIUM CHLORIDE 0.9% 250 ML BAG ONE (01:41)
[2023-04-06] MEDS ORDERED: fentaNYL (PF) 50 MCG/ML 5 ML AMP ONE (01:41)
[2023-04-06 03:05] LABS: Amphetamine Screen,Urine Detected (NotDetected); Barbiturate Screen,Urine Not Detected (NotDetected); Benzodiazepines Screen,Urine Not Detected (NotDetected); Cocaine Screen,Urine Not Detected (NotDetected); Methadone Screen, Urine Not Detected (NotDetected); Opiate Screen,Urine Not Detected (NotDetected); Oxycodone Screen, Urine Not Detected (NotDetected); Phencyclidine Screen,Urine Not Detected (NotDetected); Tricyclic Antidepressant,Urine Not Detected (NotDetected); Urn Cannabinoid Scrn Not Detected (NotDetected)
[2023-04-06] MEDS ORDERED: PENICILLIN G POTASSIUM 2,500,000 UNIT in DEXTROSE 5% IN WATER 100 ML IVPB SCH ×2 (04:00)
[2023-04-06] MEDS ORDERED: BENZOCAINE/MENTHOL SPRAY 1 GM/SPRAY AEROSOL TOPICAL PRN (05:17)
[2023-04-06] MEDS ORDERED: diphenhydrAMINE 50 MG/ML 1 ML VIAL IVP PRN ×2 (05:17)
[2023-04-06] MEDS ORDERED: diphenhydrAMINE 50 MG CAP PO PRN (05:17)
[2023-04-06] MEDS ORDERED: HYDROcodone/APAP 5-325MG 1 EACH TAB PO PRN (05:17)
[2023-04-06] MEDS ORDERED: ZOLPIDEM 5 MG TAB PO PRN (05:17)
[2023-04-06] MEDS ORDERED: diphenhydrAMINE 25 MG CAP PO PRN (05:17)
[2023-04-06] MEDS ORDERED: HYDROcodone/APAP 7.5-325MG 1 EACH TAB PO PRN (05:17)
[2023-04-06] MEDS ORDERED: HYDROCORTISONE 2.5% RECTAL CREAM 30 GM TUBE RECTAL PRN (05:17)
[2023-04-06] MEDS ORDERED: SIMETHICONE 80 MG CHEWABLE PO PRN (05:17)
--- NOTE | 2023-04-06 05:33 | P.HPOB ---
History of Present Illness H&P Date: 04/06/23 Chief Complaint: 36-3/7 weeks, labor, no care The patient is a 28-year-old 7 para 4023 admitted at 36-3/7 weeks by an early ultrasound done elsewhere, possibly in [place]. She is admitted in active labor with all signs reassuring, category 1 heart tracing. Her has been reportedly uncomplicated though she has had no care here or anywhere else. Group B strep status is unknown. Obstetrical history: 7 para 4023 with current statistics listed in history of present illness. EDC of 05/01/2022 was determined by an early ultrasound done elsewhere. Laboratory workup determined here in triage yesterday demonstrates a blood type of O- with a negative antibody screen. Rubella status is immune. The remainder of her laboratory workup has been negative. Group B strep status is unknown. Gynecologic history: Unremarkable with no apparent history of STDs. Review of Systems Review of systems is confined to history of present illness. Past Medical History Past Medical History: Seizure Disorder Additional Past Medical History / Comment(s): She reported having a seizure 1 week ago and that she takes Depakote for that. lupus History of Any Multi-Drug Resistant Organisms: None Reported Past Surgical History: Orthopedic Surgery Additional Past Surgical History / Comment(s): rt arm Smoking Status: Current every day smoker Medications and Allergies Home Medications Medication Instructions Recorded Confirmed Type Vit No.179/Iron/Folic 1 tab PO DAILY 04/05/23 04/05/23 History [ Tablet] Allergies Allergy/AdvReac Type Severity Reaction Status Date / Time chocolate flavor Allergy Anaphylaxis Verified 08/03/22 15:12 rubbing alcohol AdvReac Rash/Hives Uncoded 06/20/22 15:01 Exam Vital Signs Temp Pulse Resp BP Pulse Ox 04/06/23 02:38 97.3 F L 90 18 169/115 100 Intake and Output 04/05/23 04/05/23 04/06/23 14:59 22:59 06:59 Other: Weight 75.75 kg In general, this is a well-developed, well-nourished white female in no acute distress. Her heart has a regular rhythm and rate without murmur. Her lungs a re clear to auscultation bilaterally in all ha. Her abdomen is gravid, nondistended, has normal active bowel sounds, soft, nontender, without any palpable masses aside from uterine fundus. Her extremities without any cyanosis, clubbing, though there is 2+ bilateral pitting edema. Digital cerv ical examination demonstrates her cervix to be 5 cm dilated, 90% effaced, vertex in presentation at -1-0 station. Spontaneous rupture of membranes is confirmed by amnio sure. Results Result Diagrams: 04/06/23 00:07 Abnormal Lab Results - Last 24 Hours (Table) 04/06/23 04/06/23 Range/Units 00:07 01:15 Plt Count 121 L (150-450) k/uL Ur Amphetamines Screen Detected H (NotDetected) U Methamphetamines Scrn Detected H (NotDetected) Assessment and Plan (1) No care in current Current Visit: Yes Status: Acute Code(s): O09.30 - SUPRVSN OF PREG W INSUFFICIENT ANTENAT CARE, UNSP TRIMESTER SNOMED Code(s): 221265820 (2) Active labor at term Current Visit: Yes Status: Acute Code(s): RTN9598 - SNOMED Code(s): 97499769 Plan: The patient is admitted for active management of labor. She will have close maternal and surveillance and expectant management will be practiced. She is a good candidate for either IV or epidural analgesia, whichever she may choose.
--- NOTE | 2023-04-06 05:36 | P.PROBDLV ---
Vaginal Delivery Note - . Vaginal Delivery Note: The patient is a 28-year-old 7 para 4023 admitted at 36-3/7 weeks by dating parameters from an early ultrasound done elsewhere. She is admitted in active labor with documented spontaneous rupture of membranes. Her has been reportedly uncomplicated though she has had no care. On labor and delivery, all signs reassuring with category 1 heart rate tracing. She had an epidural catheter placed for analgesia and then progressed fairly quickly to complete and +3 station. She pushed over the course of 1 contraction to a normal spontaneous vaginal delivery of a viable 5 lbs. 12 oz. baby boy with Apgars of 9 at 1 minute and 9 at 5 minutes delivered in the occiput anterior position. There was a tight nuchal cord times to which was reduced following delivery of the . The placenta was delivered spontaneously, intact, and grossly normal, with a grossly normal, marginally inserted three-vessel cord. A small second-degree midline perineal laceration was noted and was repaired in standard fashion with 3-0 Vicryl complications. Estimated blood loss for the case is approximately 150 mL. There were no complications. All sponge, instrument, needle counts were correct. Both mother and are resting comfortably in recovery.
[2023-04-06] MEDS: IBUPROFEN 600 MG TAB PO PRN ×2 (07:39→16:10)
[2023-04-06] MEDS: SENNOSIDES-DOCUSATE SODIUM 1 EACH TAB PO SCH ×2 (07:39→20:17)
[2023-04-06] MEDS ORDERED: LABETALOL 100 MG TAB PO SCH (09:00)
[2023-04-06] MEDS ORDERED: NICOTINE 14MG/24HR PATCH TRANSDERM STA (15:04)
[2023-04-06] MEDS ORDERED: Rhogam IMMUNE GLOBULIN 1,500 UNIT/1 ML IM ONE (16:02)
[2023-04-06] MEDS: LABETALOL 100 MG TAB PO SCH (16:10)
[2023-04-06] MEDS: NICOTINE GUM (POLACRILEX) 2 MG GUM BUCCAL PRN (16:20)
[2023-04-06] MEDS: ACETAMINOPHEN TAB 325 MG TAB PO PRN (20:17)
[2023-04-07] MEDS: LABETALOL 100 MG TAB PO SCH ×4 (00:43→22:04)
[2023-04-07] MEDS: IBUPROFEN 600 MG TAB PO PRN ×4 (00:47→22:04)
[2023-04-07 07:43] LABS: Basophils % (A) 0 %; Eosinophils # (A) 0.2 k/uL (0-0.7); Eosinophils % (A) 2 %; HCT 33.4 % (34.0-46.0); HGB 11.2 gm/dL (11.4-16.0); Lymphocytes # (A) 2.5 k/uL (1.0-4.8); Lymphocytes % (A) 31 %; MCH 29.6 pg (25.0-35.0); MCHC 33.7 g/dL (31.0-37.0); MCV 87.9 fL (80.0-100.0); Mean Platelet Volume 12.5; Monocytes # (A) 0.3 k/uL (0-1.0); Monocytes % (A) 3 %; Neutrophils # (A) 5.1 k/uL (1.3-7.7); Neutrophils % (A) 62 %; RDW 13.7 % (11.5-15.5); WBC 8.2 k/uL (3.8-10.6)
[2023-04-07] MEDS: SENNOSIDES-DOCUSATE SODIUM 1 EACH TAB PO SCH ×2 (08:55→22:01)
[2023-04-07 08:56] LABS: Large Platelets Present; Platelet Count 95 k/uL (150-450)
--- NOTE | 2023-04-07 09:23 | P.PNOBGVD ---
Subjective - Subjective Interval history: Patient does admit to headache and some blurry vision today. Patient reports: Reports appetite normal, Reports voiding normally, Reports pain well controlled, Reports ambulating normally : doing well, in NICU Objective - Latest Vital Signs Latest vital signs: Vital Signs Temp Pulse Resp BP Pulse Ox 04/07/23 00:00 95 16 134/73 98 04/06/23 20:00 98.5 F 114 H 16 145/80 98 04/06/23 18:01 128/81 04/06/23 16:00 98.3 F 102 H 16 154/98 98 04/06/23 11:52 98.7 F 110 H 18 142/95 98 Intake and Output 04/06/23 04/07/23 04/07/23 22:59 06:59 14:59 Other: # Voids 1 - Exam Extremities: Present: normal, edema (2+ bilateral pitting edema to below the knee.) Abdomen: Present: normal appearance, soft Uterus: Present: normal, firm (The uterine fundus is tonic and nontender below the umbilicus.) - Labs Labs: Abnormal Lab Results - Last 24 Hours (Table) 04/07/23 Range/Units 06:53 Hgb 11.2 L (11.4-16.0) gm/dL Hct 33.4 L (34.0-46.0) % Plt Count 95 L (150-450) k/uL Assessment and Plan (1) No care in current Current Visit: Yes Status: Acute Code(s): O09.30 - SUPRVSN OF PREG W INSUFFICIENT ANTENAT CARE, UNSP TRIMESTER SNOMED Code(s): 889584482 (2) Active labor at term Current Visit: Yes Status: Acute Code(s): RGF0535 - SNOMED Code(s): 51105306 (3) hypertension Current Visit: Yes Status: Acute Code(s): O16.5 - UNSPECIFIED MATERNAL HYPERTENSION, COMP THE PUERPERIUM SNOMED Code(s): 15881997 (4) Normal spontaneous vaginal delivery Current Visit: Yes Status: Acute Code(s): O80 - ENCOUNTER FOR FULL-TERM UNCOMPLICATED DELIVERY SNOMED Code(s): 79644622 Plan: Continue routine care. We will recheck labs for preeclampsia acutely given her continued swelling and secondary complaints of headache with blurry vision along with the elevated blood pressures requiring labetalol 100 mg 3 times a day.
[2023-04-07 10:01] LABS: INR 0.8 (<1.2); Partial Thromboplastin Time 23.9 sec (22.0-30.0); Prothrombin Time 9.3 sec (10.0-12.5)
[2023-04-07 10:15] LABS: ALT 19 U/L (4-34); AST 29 U/L (14-36); African American GFR (CKD) >90 (>60 ml/min/1.73 sqM); Blood Urea Nitrogen 11 mg/dL (7-17); LDH 241 U/L (120-246); Non-African American GFR(CKD) >90 (>60 ml/min/1.73 sqM); Uric Acid 6.7 mg/dL (3.7-7.4)
[2023-04-07 14:45] LABS: N. gonorrhoeae,PCR Negative (Negative)
[2023-04-07 15:18] LABS: C. trachomatis,PCR Negative (Negative)
[2023-04-08] MEDS: IBUPROFEN 600 MG TAB PO PRN ×3 (08:22→22:43)
[2023-04-08] MEDS: SENNOSIDES-DOCUSATE SODIUM 1 EACH TAB PO SCH ×2 (08:23→21:21)
[2023-04-08] MEDS: LABETALOL 100 MG TAB PO SCH ×3 (08:23→21:22)
[2023-04-08 08:39] LABS: Basophils % (A) 1 %; Eosinophils # (A) 0.2 k/uL (0-0.7); Eosinophils % (A) 2 %; HCT 34.1 % (34.0-46.0); HGB 11.4 gm/dL (11.4-16.0); Lymphocytes # (A) 1.9 k/uL (1.0-4.8); Lymphocytes % (A) 22 %; MCH 29.3 pg (25.0-35.0); MCHC 33.4 g/dL (31.0-37.0); MCV 87.8 fL (80.0-100.0); Mean Platelet Volume 11.1; Monocytes # (A) 0.2 k/uL (0-1.0); Monocytes % (A) 3 %; Neutrophils # (A) 6.1 k/uL (1.3-7.7); Neutrophils % (A) 72 %; RBC 3.88 m/uL (3.80-5.40); RDW 13.7 % (11.5-15.5); WBC 8.5 k/uL (3.8-10.6)
[2023-04-08 08:43] LABS: Platelet Count 95 k/uL (150-450)
[2023-04-08] MEDS ORDERED: CALCIUM GLUCONATE 1 GM/10 ML VIAL IV PRN (09:04)
[2023-04-08] MEDS ORDERED: LABETALOL 5 MG/ML VIAL MDV IVP PRN ×3 (09:04)
[2023-04-08] MEDS ORDERED: hydrALAZINE HCL 20 MG/ML 1 ML VIAL IVP PRN (09:04)
[2023-04-08] MEDS ORDERED: MAGNESIUM SULFATE-WATER PMX 4 GM in WATER FOR INJECTION 1 100ML.BAG IVPB ONE (09:04)
--- NOTE | 2023-04-08 09:10 | P.PNOBGVD ---
Subjective - Subjective Interval history: The patient continues to report headache and blurry vision. She still has mo derate bilateral lower extremity edema which has not resolved. Patient reports: Reports appetite normal, Reports voiding normally, Reports pain well controlled, Reports ambulating normally : doing well, in NICU (For scoring.) Objective - Latest Vital Signs Latest vital signs: Vital Signs Temp Pulse Resp BP Pulse Ox 04/08/23 04:00 98.1 F 97 18 151/90 04/08/23 00:00 98.2 F 88 18 143/85 04/07/23 19:46 97.5 F L 97 18 138/84 100 04/07/23 16:00 98.9 F 98 15 138/82 99 04/07/23 10:49 129/84 Intake and Output 04/07/23 04/08/23 04/08/23 22:59 06:59 14:59 Other: # Voids 1 1 - Exam Extremities: Present: normal, edema (2+ bilateral lower extremity edema to just below the knees.) Abdomen: Present: normal appearance, soft Uterus: Present: normal, firm (The uterine fundus is tonic and only tender below the umbilicus.) - Labs Labs: Abnormal Lab Results - Last 24 Hours (Table) 04/07/23 04/08/23 Range/Units 09:23 08:16 Plt Count 95 L (150-450) k/uL PT 9.3 L (10.0-12.5) sec Assessment and Plan (1) No care in current Current Visit: Yes Status: Acute Code(s): O09.30 - SUPRVSN OF PREG W INSUFFICIENT ANTENAT CARE, UNSP TRIMESTER SNOMED Code(s): 297015894 (2) Active labor at term Current Visit: Yes Status: Acute Code(s): SWX5160 - SNOMED Code(s): 66583678 (3) hypertension Current Visit: Yes Status: Acute Code(s): O16.5 - UNSPECIFIED MATERNAL HYPERTENSION, COMP THE PUERPERIUM SNOMED Code(s): 55121253 (4) Normal spontaneous vaginal delivery Current Visit: Yes Status: Acute Code(s): O80 - ENCOUNTER FOR FULL-TERM UNCOMPLICATED DELIVERY SNOMED Code(s): 29288388 Plan: Repeat CBC this morning continued to demonstrate low platelet count and the patient continues to have secondary symptoms to include headache and blurry vision as well as hypertension requiring treatment with labetalol 3 times daily. I am concerned that this may represent an unusual presentation for HELLP syndrome. As a result, she will have IV restarted with maintenance fluids but will receive a 4 g bolus of IV magnesium to be followed by 2 g per hour for the next 24 hours. She will have close surveillance with accurate intake and output measurements and typical seizure precautions. She can continue a regular diet at this point. I have discussed these findings with the patient to understands and agrees with the plan.
[2023-04-08] MEDS: LACTATED RINGERS 1,000 ML IV SCH (10:20)
[2023-04-08] MEDS: MAGNESIUM SULFATE-WATER PMX 20 GM in WATER FOR INJECTION 1 500ML.BAG IV SCH ×2 (10:45→21:22)
[2023-04-09] MEDS: LACTATED RINGERS 1,000 ML IV SCH (07:25)
[2023-04-09] MEDS: MAGNESIUM SULFATE-WATER PMX 20 GM in WATER FOR INJECTION 1 500ML.BAG IV SCH (07:25)
[2023-04-09] MEDS: LABETALOL 100 MG TAB PO SCH ×2 (07:49→14:28)
[2023-04-09] MEDS: ACETAMINOPHEN TAB 325 MG TAB PO PRN (07:51)
[2023-04-09] MEDS: SENNOSIDES-DOCUSATE SODIUM 1 EACH TAB PO SCH ×2 (07:58→20:28)
--- NOTE | 2023-04-09 09:16 | P.PNOBGVD ---
Subjective - Subjective Interval history: The patient reports that headache and blurry vision have dissipated to some e xtent. Edema has also improved. Patient reports: Reports appetite normal, Reports voiding normally, Reports pain well controlled, Reports ambulating normally [place]: doing well, in NICU Objective - Latest Vital Signs Latest vital signs: Vital Signs Temp Pulse Resp BP Pulse Ox 04/09/23 07:47 98.1 F 90 16 180/107 04/09/23 04:00 87 18 139/93 98 04/09/23 00:00 97.4 F L 81 18 159/90 99 04/08/23 22:35 91 18 149/91 99 04/08/23 20:00 91 18 157/98 98 04/08/23 16:15 78 16 163/83 04/08/23 15:24 80 16 161/90 04/08/23 14:15 97.4 F L 74 16 144/90 04/08/23 13:15 97.6 F 106 H 16 135/73 95 04/08/23 12:15 96 16 148/72 97 04/08/23 11:45 83 16 111/68 96 04/08/23 11:15 82 16 146/70 97 04/08/23 10:53 89 16 139/71 96 04/08/23 10:38 85 16 125/58 97 04/08/23 10:23 97.5 F L 80 16 120/64 97 Intake and Output 04/08/23 04/09/23 04/09/23 22:59 06:59 14:59 Intake Total 950 500 Output Total 2300 1200 1800 Balance -1350 -1200 -1300 Intake: Intake, IV Titration 950 500 Amount Lactated Ringers 1,000 ml 300 @ 50 mls/hr IV .Q20H SVEN Rx#:[id number] Magnesium Sulfate-Water 650 500 Pmx 20 gm In Water For Injection 1 500ml.bag @ 2 GM/HR 50 mls/hr IV .Q10H SVEN Rx#:[id number] Magnesium Sulfate-Water 0 Pmx 4 gm In Water For Injection 1 100ml.bag @ 300 mls/hr IVPB ONCE ONE Rx#:[id number] Output: Urine 2300 1200 1800 Other: # Voids 3 - Exam Extremities: Present: normal Abdomen: Present: normal appearance, soft Uterus: Present: normal, firm (The uterine fundus is tonic and nontender below the umbilicus.) Assessment and Plan (1) No care in current Current Visit: Yes Status: Acute Code(s): O09.30 - SUPRVSN OF PREG W INSUFFICIENT ANTENAT CARE, UNSP TRIMESTER SNOMED Code(s): 850187276 (2) Active labor at term Current Visit: Yes Status: Acute Code(s): HSA3091 - SNOMED Code(s): 28317823 (3) hypertension Current Visit: Yes Status: Acute Code(s): O16.5 - UNSPECIFIED MATERNAL HYPERTENSION, COMP THE PUERPERIUM SNOMED Code(s): 25964931 (4) Normal spontaneous vaginal delivery Current Visit: Yes Status: Acute Code(s): O80 - ENCOUNTER FOR FULL-TERM UNCOMPLICATED DELIVERY SNOMED Code(s): 20627728 (5) Pre-eclampsia, Current Visit: Yes Status: Acute Code(s): O14.95 - UNSPECIFIED PRE- ECLAMPSIA, COMPLICATING THE PUERPERIUM SNOMED Code(s): 676454326 Plan: The patient has had magnesium sulfate infusion for approximately 24 hours and will be discontinued at 24 hours. We will continue to monitor her blood pre ssures closely and recheck her CBC tomorrow morning. She will continue to remain in the hospital until stable for discharge.
[2023-04-09] MEDS ORDERED: LABETALOL 100 MG TAB PO ONE (14:45)
[2023-04-09] MEDS: IBUPROFEN 600 MG TAB PO PRN (20:16)
[2023-04-09] MEDS ORDERED: LABETALOL 200 MG TAB PO SCH (22:00)
[2023-04-09] MEDS: LABETALOL 200 MG TAB PO SCH (23:28)
[2023-04-10] MEDS: LACTATED RINGERS 1,000 ML IV SCH (04:44)
[2023-04-10 07:29] LABS: Basophils % (A) 1 %; Eosinophils # (A) 0.2 k/uL (0-0.7); Eosinophils % (A) 3 %; HCT 34.6 % (34.0-46.0); HGB 11.5 gm/dL (11.4-16.0); Lymphocytes # (A) 2.1 k/uL (1.0-4.8); Lymphocytes % (A) 28 %; MCH 29.2 pg (25.0-35.0); MCHC 33.4 g/dL (31.0-37.0); MCV 87.6 fL (80.0-100.0); Mean Platelet Volume 10.1; Monocytes # (A) 0.3 k/uL (0-1.0); Monocytes % (A) 4 %; Neutrophils # (A) 4.7 k/uL (1.3-7.7); Neutrophils % (A) 63 %; Platelet Count 135 k/uL (150-450); RBC 3.95 m/uL (3.80-5.40); RDW 13.9 % (11.5-15.5); WBC 7.5 k/uL (3.8-10.6)
[2023-04-10] MEDS: LABETALOL 200 MG TAB PO SCH ×3 (08:11→19:52)
[2023-04-10] MEDS: SENNOSIDES-DOCUSATE SODIUM 1 EACH TAB PO SCH ×2 (08:50→19:41)
--- NOTE | 2023-04-10 11:28 | P.PNOBGVD ---
Subjective - Subjective Interval history: The patient reports feeling somewhat better today but still with occasional h eadache and blurry vision. She continues to have significant edema in her lower extremities. She denies any other localizing symptoms to include shortness of breath. Patient reports: Reports appetite normal, Reports voiding normally, Reports pain well controlled, Reports ambulating normally [place]: doing well, in NICU Objective - Latest Vital Signs Latest vital signs: Vital Signs Temp Pulse Resp BP Pulse Ox 04/10/23 08:52 74 18 124/79 04/10/23 08:00 98.4 F 54 L 18 169/86 98 04/10/23 04:41 97.3 F L 70 16 150/82 98 04/09/23 23:35 96.9 F L 81 16 131/75 98 04/09/23 20:26 96.9 F L 75 18 147/85 100 04/09/23 17:53 94 16 146/92 04/09/23 16:00 98.9 F 81 16 144/92 04/09/23 13:45 98.4 F 92 16 152/113 Intake and Output 04/09/23 04/10/23 04/10/23 22:59 06:59 14:59 Output Total 800 Balance -800 Output: Urine 800 Other: # Voids 1 1 1 - Exam Extremities: Present: normal, edema (Grade 2+ pitting edema to just below the knee bilaterally.) Abdomen: Present: normal appearance, soft Uterus: Present: normal, firm (The uterine fundus is tonic and somewhat tender below the umbilicus.) - Labs Labs: Abnormal Lab Results - Last 24 Hours (Table) 04/10/23 Range/Units 07:08 Plt Count 135 L (150-450) k/uL Assessment and Plan (1) No care in current Current Visit: Yes Status: Acute Code(s): O09.30 - SUPRVSN OF PREG W INSUFFICIENT ANTENAT CARE, UNSP TRIMESTER SNOMED Code(s): 325045888 (2) Active labor at term Current Visit: Yes Status: Acute Code(s): VDZ0282 - SNOMED Code(s): 56585406 (3) hypertension Current Visit: Yes Status: Acute Code(s): O16.5 - UNSPECIFIED MATERNAL HYPERTENSION, COMP THE PUERPERIUM SNOMED Code(s): 27005392 (4) Normal spontaneous vaginal delivery Current Visit: Yes Status: Acute Code(s): O80 - ENCOUNTER FOR FULL-TERM UNCOMPLICATED DELIVERY SNOMED Code(s): 14317180 (5) Pre-eclampsia, Current Visit: Yes Status: Acute Code(s): O14.95 - UNSPECIFIED PRE- ECLAMPSIA, COMPLICATING THE PUERPERIUM SNOMED Code(s): 604512683 Plan: The patient's blood pressures continued to remain somewhat labile despite labetalol 200 mg 3 times a day. She continues to have fairly significant bilateral lower extremity edema and some secondary symptoms. She has been treated with magnesium sulfate for more than 24 hours but has yet to diuresis. As a result, I have consulted internal medicine for further management of her blood pressures and evaluation for the possibility of cardiomyopathy to ensure that the patient is stable for discharge when that becomes a possibility. There has been some concern raised for possible continued drug use in the hospital as the patient has made several trips outside of the hospital during admission. She denies this directly. There may be a consideration for repeating her urine drug screen prior to discharge. We will await the input of the hospitalist group.
[2023-04-10] MEDS: ACETAMINOPHEN TAB 325 MG TAB PO PRN (12:32)
[2023-04-10] MEDS: hydrALAZINE HCL 10 MG TAB PO SCH ×3 (13:51→23:37)
--- NOTE | 2023-04-10 15:20 | P.CONS ---
History of Present Illness - Reason for Consult Consult date: 04/10/23 - History of Present Illness Patient is a 28-year-old female who originally admitted at 36 3/7 weeks in ac tive labor. Patient did not have any care. Patient does use methamphetamine, and is likely homeless as well. Her social history is complicated including one child, and 3 other children not in her custody. She had spontaneous vaginal delivery. Was noted to be hypertensive, with concerns of preeclampsia. She was given IV magnesium . Physicians has been consulted for concern of peripartum hypertension and lower extremity swelling. She claims that she noted lower extremity swelling about 1 month ago. She did have dyspnea with exertion, denies any dyspnea at rest or any orthopnea. Her lower extremity swelling has been worsening, and not correlated with her amphetamine use. All of her previous pregnancies were uncomplicated. She also claims that she had slightly decreased urinary output. More recently she has been experiencing some posterior headaches and occasional blurry vision. She denies any chest pain, significant cough, abdominal pain, nausea, vomiting, or bowel complaints. Pertinent positives and negatives as discussed in HPI, a complete review of systems was performed and all other systems are negative. Patient seen and examined at bedside. Vital signs reviewed General: nontoxic, no distress, appears at stated age Derm: warm, dry Head: atraumatic, normocephalic, symmetric Eyes: EOMI, no lid lag, anicteric sclera, pupils equal round reactive to light ENT: Nose and ears atraumatic Neck: No thyromegaly, supple Mouth: no lip lesion, mucus membranes moist Cardiovascular: S1S2 reg, no murmur, 2+ pitting edema Lungs: clear to auscultation bilateral, no rhonchi, no rales, no wheeze, no accessory muscle use Abdominal: soft, distended, nontender to palpation, no guarding, no appreciable organomegaly Ext: no gross muscle atrophy, muscle strength muscle strength 5 out of 5 in all 4 extremities, no contractures Neuro: CN II-XII grossly intact Psych: Alert, oriented, flat affect Assessment/Plan: hypertension -Continue labetalol 200 mg 3 times a day, also started on hydralazine 10 mg 4 times a day -She did have significant proteinuria on 04/05/23 however he was not a clean ur ine sample as it was 55 squamous epithelial cells -Repeat urinalysis Lower extremity edema -Possibly related to her -However given increase in exertional dyspnea, we will obtain an echocardiogram to rule out any cardiomyopathy -ProBNP is not elevated Polysubstance abuse -On 04/06 urine toxicology was positive for amphetamines and methamphetamines -There is a concern that patient may still be using amphetamines -hot blast worker is following -CPS is involved Thank you for allowing us to participate in the care of this pleasant patient. Do not hesitate to contact us with questions. Someone can be reached from the [facility] hospitalist group all hours of the day at [phone] or via Lyft. Past Medical History Past Medical History: Seizure Disorder Additional Past Medical History / Comment(s): She reported having a seizure 1 week ago and that she takes Depakote for that. lupus History of Any Multi-Drug Resistant Organisms: None Reported Past Surgical History: Orthopedic Surgery Additional Past Surgical History / Comment(s): rt arm Smoking Status: Current every day smoker Medications and Allergies Home Medications Medication Instructions Recorded Confirmed Type Vit No.179/Iron/Folic 1 tab PO DAILY 04/05/23 04/05/23 History [ Tablet] Allergies Allergy/AdvReac Type Severity Reaction Status Date / Time chocolate flavor Allergy Anaphylaxis Verified 08/03/22 15:12 rubbing alcohol AdvReac Rash/Hives Uncoded 06/20/22 15:01 Physical Exam Vitals: Vital Signs Temp Pulse Resp BP Pulse Ox 04/10/23 12:21 98.7 F 81 18 155/91 98 04/10/23 08:52 74 18 124/79 04/10/23 08:00 98.4 F 54 L 18 169/86 98 04/10/23 04:41 97.3 F L 70 16 150/82 98 04/09/23 23:35 96.9 F L 81 16 131/75 98 04/09/23 20:26 96.9 F L 75 18 147/85 100 04/09/23 17:53 94 16 146/92 04/09/23 16:00 98.9 F 81 16 144/92 Intake and Output 04/10/23 04/10/23 04/10/23 06:59 14:59 22:59 Other: # Voids 1 1 Weight 68.629 kg Results CBC & Chem 7: 04/10/23 07:08 04/07/23 09:23 Labs: Abnormal Lab Results - Last 24 Hours (Table) 04/10/23 Range/Units 07:08 Plt Count 135 L (150-450) k/uL
--- NOTE | 2023-04-10 17:21 | CA ---
Transthoracic Echo Report Name: Sandy Gamez Age: 28 Gender: F : 1995 Exam Date: 04/10/2023 11:57 Exam Location: [place] [facility] Ht (in): 63 Wt (lb): 167 Ordering Physician: Hola Day MD Attending/Referring Phys: Felt Cutter Susan Mas RDCS Procedure CPT: Indications: concern for cardiomyopathy Cardiac Hx: Technical Quality: Good Contrast 1: Total Dose (mL): Contrast 2: Total Dose (mL): MEASUREMENTS (Male / Female) Normal Values 2D ECHO LV Diastolic Diameter PLAX 4.4 cm 4.2 - 5.9 / 3.9 - 5.3 cm LV Systolic Diameter PLAX 2.5 cm IVS Diastolic Thickness 1.1 cm 0.6 - 1.0 / 0.6 - 0.9 cm LVPW Diastolic Thickness 1.0 cm 0.6 - 1.0 / 0.6 - 0.9 cm LV Relative Wall Thickness 0.5 RV Internal Dim ED PLAX 2.7 cm LA Systolic Diameter LX 3.2 cm 3.0 - 4.0 / 2.7 - 3.8 cm LV Diastolic Volume MOD 4C 129.2 cm??? LV Systolic Volume MOD 4C 63.9 cm??? LV Ejection Fraction MOD 4C 50.5 % LV Cardiac Index MOD 4C 2561.3 cm???/min???m??? LV Diastolic Length 4C 8.2 cm LV Systolic Length 4C 7.0 cm LV Diastolic Volume MOD 2C 96.8 cm??? LV Systolic Volume MOD 2C 35.1 cm??? LV Ejection Fraction MOD 2C 63.8 % LV Cardiac Index MOD 2C 2423.7 cm???/min???m??? LV Diastolic Length 2C 7.9 cm LV Systolic Length 2C 6.6 cm LA Volume 39.2 cm??? 18 - 58 / 22 - 52 cm??? LA Volume Index 21.1 cm???/m??? 16 - 28 cm???/m??? M-MODE Aortic Root Diameter MM 3.0 cm MV E Point Septal Separation 0.6 cm AV Cusp Separation MM 2.0 cm DOPPLER AV Peak Velocity 104.1 cm/s AV Peak Gradient 4.3 mmHg MV Area PHT 2.6 cm??? Mitral E Point Velocity 100.4 cm/s Mitral A Point Velocity 62.1 cm/s Mitral E to A Ratio 1.6 MV Deceleration Time 287.9 ms MV E' Velocity 8.9 cm/s Mitral E to MV E' Ratio 11.3 TR Peak Velocity 233.1 cm/s TR Peak Gradient 21.7 mmHg Right Ventricular Systolic Press 26.3 mmHg FINDINGS Left Ventricle Left ventricular ejection fraction is estimated at 55-60 %. Left ventricular cavity size normal. Mildly increased septal wall thickness. No obvious regional wall motion abnormalities. Right Ventricle Normal right ventricular size. Right Atrium Normal right atrial size. Left Atrium Normal left atrial size. Mitral Valve Structurally normal mitral valve. Mild mitral regurgitation. Aortic Valve Trileaflet aortic valve. No aortic stenosis. Tricuspid Valve Structurally normal tricuspid valve. Mild tricuspid regurgitation. Pulmonic Valve Structurally normal pulmonic valve. Trace pulmonic regurgitation. Pericardium No pericardial effusion. Aorta Normal size aortic root and proximal ascending aorta. CONCLUSIONS Left ventricular ejection fraction is estimated at 55-60 %. No obvious regional wall motion abnormalities. Mild concentric LVH Mild MR No pericardial effusion Previewed by: Dr Alexei Arnold (Electronically Signed) Final Date: 10 April 2023 17:20
[2023-04-10 18:19] LABS: Appearance,Urine Clear (Clear); Bilirubin,Urine Negative (Negative); Blood,Urine Moderate (Negative); Color,Urine Colorless; Glucose,Urine (UA) Negative (Negative); Hyaline Casts,Urine 3 /lpf (0-2); Ketones,Urine Negative (Negative); Leukocyte Esterase,Urine Negative (Negative); Mucus,Urine Rare /hpf; Nitrite,Urine Negative (Negative); Protein,Urine 2+ (Negative); RBC,Urine 14 /hpf (0-5); Specific Gravity,Urine 1.011 (1.001-1.035); Squamous Epithelial Cell,Urine <1 /hpf (0-4); Urobilinogen,Urine <2.0 mg/dL (<2.0); WBC,Urine 2 /hpf (0-5)
[2023-04-10 18:22] LABS: Amphetamine Screen,Urine Not Detected (NotDetected); Barbiturate Screen,Urine Not Detected (NotDetected); Benzodiazepines Screen,Urine Not Detected (NotDetected); Cocaine Screen,Urine Not Detected (NotDetected); Methadone Screen, Urine Not Detected (NotDetected); Opiate Screen,Urine Not Detected (NotDetected); Oxycodone Screen, Urine Not Detected (NotDetected); Phencyclidine Screen,Urine Not Detected (NotDetected); Tricyclic Antidepressant,Urine Not Detected (NotDetected); Urn Cannabinoid Scrn Not Detected (NotDetected)
[2023-04-10] MEDS: IBUPROFEN 600 MG TAB PO PRN (19:45)
[2023-04-10] MEDS: NICOTINE GUM (POLACRILEX) 2 MG GUM BUCCAL PRN (23:36)
[2023-04-11] MEDS: SENNOSIDES-DOCUSATE SODIUM 1 EACH TAB PO SCH ×2 (07:45→20:16)
[2023-04-11] MEDS: IBUPROFEN 600 MG TAB PO PRN ×2 (07:55→21:24)
[2023-04-11] MEDS: LABETALOL 200 MG TAB PO SCH ×3 (07:55→21:24)
[2023-04-11] MEDS: hydrALAZINE HCL 10 MG TAB PO SCH ×5 (07:55→21:23)
--- NOTE | 2023-04-11 11:15 | P.PNOBGVD ---
Subjective - Subjective Principal diagnosis: PPD 5 Interval history: No new concerns. [facility] is currently following for blood pressure management. Patient is dealing with significant CPS issues. Patient reports: Reports appetite normal, Reports voiding normally, Reports pain well controlled, Reports ambulating normally [place]: doing well (in special care nursery) Objective - Latest Vital Signs Latest vital signs: Vital Signs Temp Pulse Resp BP Pulse Ox 04/11/23 07:59 98.0 F 96 17 148/92 97 04/11/23 04:00 98.7 F 100 16 136/87 98 04/10/23 23:43 98.8 F 95 16 130/82 100 04/10/23 20:59 98.5 F 85 16 144/91 98 04/10/23 18:00 79 110/70 04/10/23 16:00 97.9 F 80 16 138/83 04/10/23 12:21 98.7 F 81 18 155/91 98 - Exam Extremities: Present: normal, edema - Labs Labs: Abnormal Lab Results - Last 24 Hours (Table) 04/10/23 Range/Units 17:54 Urine Protein 2+ H (Negative) Urine Blood Moderate H (Negative) Urine RBC 14 H (0-5) /hpf Hyaline Casts 3 H (0-2) /lpf Urine Mucus Rare H (None) /hpf Assessment and Plan (1) Active labor at term Current Visit: Yes Status: Acute Code(s): KLK0418 - SNOMED Code(s): 36981915 (2) No care in current Current Visit: Yes Status: Acute Code(s): O09.30 - SUPRVSN OF PREG W INSUFFICIENT ANTENAT CARE, UNSP TRIMESTER SNOMED Code(s): 864511264 (3) Normal spontaneous vaginal delivery Current Visit: Yes Status: Acute Code(s): O80 - ENCOUNTER FOR FULL-TERM UNCOMPLICATED DELIVERY SNOMED Code(s): 60001789 (4) Perineal laceration during delivery Current Visit: Yes Status: Acute Code(s): O70.9 - PERINEAL LACERATION DURING DELIVERY, UNSPECIFIED SNOMED Code(s): 463122833 (5) hypertension Current Visit: Yes Status: Acute Code(s): O16.5 - UNSPECIFIED MATERNAL HYPERTENSION, COMP THE PUERPERIUM SNOMED Code(s): 98604824 (6) Pre-eclampsia, Current Visit: Yes Status: Acute Code(s): O14.95 - UNSPECIFIED PRE- ECLAMPSIA, COMPLICATING THE PUERPERIUM SNOMED Code(s): 324081291 (7) Rh negative status during Current Visit: Yes Status: Acute Code(s): O26.899 - OTH RELATED CONDITIONS, UNSPECIFIED TRIMESTER; Z67.91 - UNSPECIFIED BLOOD TYPE, RH NEGATIVE SNOMED Code(s): 616655096 Plan: Continue current management with [facility] regarding hypertensive treatment. CPS continues to evaluate discharged for infant.
--- NOTE | 2023-04-11 14:42 | P.PN ---
Subjective Progress Note Date: 04/11/23 Subjective: Patient seen and examined at bedside. No acute events overnight. He claims that her lower extremity swelling is slightly improved. Denies any significant shortness of breath. Denies any chest pain. Pertinent positives and negatives as discussed above, a complete review of systems was performed and all other systems are negative. Vitals Signs Reviewed. General: nontoxic, no distress, appears at stated age Derm: warm, dry Head: atraumatic, normocephalic, symmetric Eyes: EOMI, no lid lag, anicteric sclera, pupils equal round reactive to light ENT: Nose and ears atraumatic Neck: No thyromegaly, supple Mouth: no lip lesion, mucus membranes moist Cardiovascular: S1S2 reg, no murmur, 2+ pitting edema Lungs: clear to auscultation bilateral, no rhonchi, no rales, no wheeze, no accessory muscle use Abdominal: soft, distended, nontender to palpation, no guarding, no appreciable organomegaly Ext: no gross muscle atrophy, muscle strength muscle strength 5 out of 5 in all 4 extremities, no contractures Neuro: CN II-XII grossly intact Psych: Alert, oriented, flat affect Data Reviewed Today: Pertinent Labs: UA shows 2+ protein, urine toxicology negative, proBNP 302 Imaging: Echocardiogram shows LVEF 55-60%, no obvious regional wall motion abnormalities, mild concentric LVH Assessment and Plan: hypertension versus chronic essential hypertension -Continue labetalol 200 mg 3 times a day, -Hydralazine increased to 20 QID -Repeat urinalysis does show 2+ protein -However given mild concentric LVH on Echo, likely has chronic HTN Lower extremity edema -Possibly related to her -less likely cardiomyopathy, LVEF 55-60% Polysubstance abuse -On 04/06 urine toxicology was positive for amphetamines and methamphetamines -licensed social worker is following -CPS is involved Thrombocytopenia, resolving Thank you for allowing us to participate in the care of this pleasant patient. Do not hesitate to contact us with questions. Someone can be reached from the [facility] hospitalist group all hours of the day at [phone] or via perfect serve. Objective - Vital Signs Vital signs: Vital Signs Temp 98.4 F 04/11/23 12:25 Pulse 98 04/11/23 12:25 Resp 17 04/11/23 12:25 BP 142/85 04/11/23 12:25 Pulse Ox 97 04/11/23 12:25 FiO2 Intake & Output 04/10/23 04/11/23 04/11/23 18:59 06:59 18:59 Weight 68.629 kg 68.7 kg Other: # Voids 1 - Labs CBC & Chem 7: 04/10/23 07:08 04/07/23 09:23 Labs: Abnormal Lab Results - Last 24 Hours (Table) 04/10/23 Range/Units 17:54 Urine Protein 2+ H (Negative) Urine Blood Moderate H (Negative) Urine RBC 14 H (0-5) /hpf Hyaline Casts 3 H (0-2) /lpf Urine Mucus Rare H (None) /hpf
[2023-04-12] MEDS: LABETALOL 200 MG TAB PO SCH (06:42)
[2023-04-12] MEDS: SENNOSIDES-DOCUSATE SODIUM 1 EACH TAB PO SCH (08:04)
[2023-04-12] MEDS: hydrALAZINE HCL 10 MG TAB PO SCH ×2 (08:05→12:25)
[2023-04-12 08:12] VITALS: RESP 17
--- NOTE | 2023-04-12 10:38 | P.DS ---
Providers Date of admission: 04/06/23 01:04 Expected date of discharge: 04/12/23 Attending physician: Ceferino Joyce Consults: 04/10/23 12:24 Consult Physician Routine Consulting Provider: Hola Day Consult Reason/Comments: HTN, LE edema Do you want consulting provider notified?: Already Contacted Primary care physician: Stated None - Discharge Diagnosis(es) (1) Active labor at term Current Visit: Yes Status: Acute (2) No care in current Current Visit: Yes Status: Acute (3) Normal spontaneous vaginal delivery Current Visit: Yes Status: Acute (4) Perineal laceration during delivery Current Visit: Yes Status: Acute (5) hypertension Current Visit: Yes Status: Acute (6) Pre-eclampsia, Current Visit: Yes Status: Acute (7) Rh negative status during Current Visit: Yes Status: Acute Hospital Course: This is a 28-year-old 7 para 5024 that presented to labor and delivery at 36-3/7 weeks with complaints of regular painful contractions. For full details on this patient please see the dictated history and physical. Patient was deemed to be in active labor. Patient did not receive care. Patient progressed through labor and had a normal spontaneous vaginal delivery of a viable male infant, weight of 5 lbs. 12 oz. Patient did sustain a second- degree laceration. Elevated blood pressures continued through her course. Approximately 24 hours after delivery elevated blood pressures were n oted therefore magnesium GTT was begun for 24 hours. Preeclampsia labs were noted to be essentially normal. After 24 hours magnesium was discontinued and blood pressure monitoring revealed elevated blood pressures despite treatment with labetalol 100 mg twice daily[facility]. Labetalol was increased to 200 mg 3 times a day in addition to hydralazine 20 mg 4 times a day. Patient's blood pressures have been reasonably well-controlled on this current dosing regimen blood pressures noted 130s to 140s over 80s to 90s. This morning patient does note a mild headache but has not taken anything for it. Patient is concerned about her infant and CPS is evaluating for Foster care. Currently awaiting [facility] medicine for recommendations today. If surgically this patient is cleared for discharge given blood pressures have been well controlled I suspect discharge will be okay from their standpoint as well. Patient states lochia is noted to be mild to moderate. She denies pain. She is ambulating and voiding without difficulty. is currently being bottle fed in the nursery. Patient Condition at Discharge: Good Plan - Discharge Summary New Discharge Prescriptions: No Action Vit No.179/Iron/Folic [ Tablet] 1 tab PO DAILY Discharge Medication List Vit No.179/Iron/Folic [ Tablet] 1 tab PO DAILY 04/05/23 [History] Follow up Appointment(s)/Referral(s): Ceferino Joyce MD [STAFF PHYSICIAN] - 1 Week Patient Instructions/Handouts: Vaginal Delivery (DC), Vaginal Delivery (GEN) Activity/Diet/Wound Care/Special Instructions: No tub baths or intercourse until 6 weeks . Patient is to follow-up with internal medicine for continued blood pressure management, patient is to follow-up with Dr. Joyce for care. Bleeding precautions are reviewed with patient. We will await [facility] IM for discharge clearance. Discharge Disposition: HOME SELF-CARE
[2023-04-12 12:36] VITALS: BP 133/88; PULSE 95; TEMP 98.2
--- NOTE | 2023-04-12 15:28 | P.PN ---
Subjective Progress Note Date: 04/12/23 Subjective: Patient seen and examined at bedside. No acute events overnight. She claims that her lower extremity swelling is slightly improved. Denies any significant shortness of breath. Denies any chest pain. Pertinent positives and negatives as discussed above, a complete review of systems was performed and all other systems are negative. Vitals Signs Reviewed. General: nontoxic, no distress, appears at stated age Derm: warm, dry Head: atraumatic, normocephalic, symmetric Eyes: EOMI, no lid lag, anicteric sclera, pupils equal round reactive to light ENT: Nose and ears atraumatic Neck: No thyromegaly, supple Mouth: no lip lesion, mucus membranes moist Cardiovascular: S1S2 reg, no murmur, 2+ pitting edema Lungs: clear to auscultation bilateral, no rhonchi, no rales, no wheeze, no accessory muscle use Abdominal: soft, distended, nontender to palpation, no guarding, no appreciable organomegaly Ext: no gross muscle atrophy, muscle strength muscle strength 5 out of 5 in all 4 extremities, no contractures Neuro: CN II-XII grossly intact Psych: Alert, oriented, flat affect Data Reviewed Today: Pertinent Labs: No new labs Imaging: No new imaging Assessment and Plan: hypertension versus chronic essential hypertension -Continue labetalol 200 mg 3 times a day -Hydralazine 20 QID continue -However given mild concentric LVH on Echo, likely has chronic HTN -Outpatient follow-up with PCP, recommended to get a blood pressure cuff from pharmacy, holding parameters given, advised to take any methamphetamine Lower extremity edema -Possibly related to her -less likely cardiomyopathy, LVEF 55-60% Polysubstance abuse -On 04/06 urine toxicology was positive for amphetamines and methamphetamines - going through foster care Thrombocytopenia, resolving Patient is medically optimized for discharge. Education provided. Thank you for allowing us to participate in the care of this pleasant patient. Do not hesitate to contact us with questions. Someone can be reached from the [facility] hospitalist group all hours of the day at [phone] or via perfect serve. Objective - Vital Signs Vital signs: Vital Signs Temp 98.2 F 04/12/23 12:00 Pulse 95 04/12/23 12:00 Resp 17 04/12/23 12:00 BP 133/88 04/12/23 12:00 Pulse Ox 99 04/12/23 12:00 FiO2 Intake & Output 04/11/23 04/12/23 04/12/23 18:59 06:59 18:59 Intake Total 1330 Balance 1330 Weight 68.7 kg 67.1 kg Intake: Oral 1330 - Labs CBC & Chem 7: 04/10/23 07:08 04/07/23 09:23
== END 2023-04-12 12:31 | disposition home or self-care (01) | DRG 806 ==
LOC: FBPOP 23:35 → 4FBP 04-06 01:04
PROVIDERS: ADMIT Obstetrics & Gynecology; ATTEND Obstetrics & Gynecology
PROC: 0KQM0ZZ Repair Perineum Muscle, Open Approach (ICD-10-PCS; principal; 2023-04-06)
PROC: 10E0XZZ Delivery of Products of Conception, External Approach (ICD-10-PCS; principal; 2023-04-06)
PROC: 3E0234Z Introduction of Serum, Toxoid and Vaccine into Muscle, Percutaneous Approach (ICD-10-PCS; principal; 2023-04-06)
DX: O99.12 Other diseases of the blood and blood-forming organs and certain disorders involving the immune mechanism complicating childbirth (principal); O99.354 Diseases of the nervous system complicating childbirth; Z37.0 Single live birth; Z59.00 Homelessness unspecified; G40.909 Epilepsy, unspecified, not intractable, without status epilepticus; O69.1XX0 Labor and delivery complicated by cord around neck, with compression, not applicable or unspecified; O10.02 Pre-existing essential hypertension complicating childbirth; O11.5 Pre-existing hypertension with pre-eclampsia, complicating the puerperium; O26.893 Other specified pregnancy related conditions, third trimester; Z67.41 Type O blood, Rh negative; O43.193 Other malformation of placenta, third trimester; O70.1 Second degree perineal laceration during delivery; M32.9 Systemic lupus erythematosus, unspecified; D69.6 Thrombocytopenia, unspecified; O99.334 Smoking (tobacco) complicating childbirth; F17.200 Nicotine dependence, unspecified, uncomplicated; O99.324 Drug use complicating childbirth; F19.10 Other psychoactive substance abuse, uncomplicated; F15.90 Other stimulant use, unspecified, uncomplicated; Z3A.36 36 weeks gestation of pregnancy
CPT/HCPCS: 59025; 80306; 81001; 82565; 83615; 83880; 84112; 84450; 84460; 84520; 84550; 85025; 85384; 85461; 85610; 85730; 86850; 86900; 86901; 87491; 87591; 88307; 93306; 96360; 96367; 99215

== ENCOUNTER 2023-08-30 00:25 | Emergency (ER) | payer OTHER ==
--- NOTE | 2023-08-30 02:12 | ED ---
General Adult HPI - General Source: patient Mode of arrival: ambulatory Limitations: no limitations <Hubert Brannon - Last Filed: 08/30/23 02:13> <Juan Ramon Rodriguez - Last Filed: 08/31/23 05:06> - General Chief complaint: Head Injury Stated complaint: syncope and collapse,head injury,convulsions Time Seen by Provider: 08/30/23 02:11 - History of Present Illness Initial comments: 78-year-old female with a past medical history significant for seizures presenting to the ED with a chief complaint of headache. Patient states 11 days ago had a seizure in which she fell backwards hit the back of her head and had LOC. Reports that since then has had some ongoing headache. Reports last night she had another seizure when she hit the back of her head on countertop with LOC as well. (Hubert Brannon) - Related Data Home Medications Medication Instructions Recorded Confirmed Vit No.179/Iron/Folic 1 tab PO DAILY 04/05/23 04/05/23 [ Tablet] Previous Rx's Medication Instructions Recorded Labetalol [Trandate] 200 mg PO TID #90 tab 04/12/23 hydrALAZINE HCL [Apresoline] 20 mg PO QID #90 tab 04/12/23 Allergies Allergy/AdvReac Type Severity Reaction Status Date / Time chocolate flavor Allergy Anaphylaxis Verified 08/30/23 00:31 rubbing alcohol AdvReac Rash/Hives Uncoded 08/30/23 00:31 Review of Systems ROS Other: All systems not noted in ROS Statement are negative. <Hubert Brannon - Last Filed: 08/30/23 02:13> ROS Other: All systems not noted in ROS Statement are negative. <Juan Ramon Rodriguez - Last Filed: 08/31/23 05:06> ROS Statement: Those systems with pertinent positive or pertinent negative responses have been documented in the HPI. Past Medical History Past Medical History: Heart Failure, Seizure Disorder Additional Past Medical History / Comment(s): She reported having a seizure 1 week ago and that she takes Depakote for that. lupus History of Any Multi-Drug Resistant Organisms: None Reported Past Surgical History: Orthopedic Surgery Additional Past Surgical History / Comment(s): rt arm Past Psychological History: Anxiety, Bipolar, Schizophrenia Smoking Status: Current every day smoker Past Alcohol Use History: None Reported Past Drug Use History: None Reported <FarheenshawnSarah shahHubert - Last Filed: 08/30/23 02:13> General Exam Limitations: no limitations <FarheenshawnSarah shahHubert - Last Filed: 08/30/23 02:13> Limitations: no limitations General appearance: alert, in no apparent distress Head exam: Present: normocephalic, other (The patient does have moderate hematoma near the occiput with significant tenderness though no obvious deformity.) Eye exam: Present: normal appearance, PERRL, EOMI. Absent: scleral icterus, conjunctival injection, nystagmus ENT exam: Present: normal oropharynx, TM's normal bilaterally, normal external ear exam Neck exam: Present: normal inspection, full ROM. Absent: tenderness, meningismus Respiratory exam: Present: normal lung sounds bilaterally. Absent: respiratory distress, wheezes, rales, rhonchi, stridor, chest wall tenderness, accessory muscle use Cardiovascular Exam: Present: regular rate, normal rhythm, normal heart sounds. Absent: systolic murmur, diastolic murmur, rubs, gallop GI/Abdominal exam: Present: soft. Absent: distended, tenderness, guarding, rebound, rigid, mass Extremities exam: Present: normal inspection, normal capillary refill. Absent: pedal edema, calf tenderness Back exam: Present: normal inspection. Absent: vertebral tenderness Neurological exam: Present: alert, oriented X3, CN II-XII intact. Absent: motor sensory deficit Skin exam: Present: warm, dry, intact, normal color. Absent: rash <Juan Ramon Rodriguez - Last Filed: 08/31/23 05:06> - General Exam Comments Initial Comments: Visual Physical Exam Vital signs reviewed General: Well-appearing, nontoxic, no acute distress. Head: Normocephalic, atraumatic Eyes: PERRLA, EOMI ENT: Airway patent Chest: Nonlabored breathing Skin: No visual rash, normal skin tone Neuro: Alert and oriented 3 Musculoskeletal: No gross abnormalities (Hubert Brannon) Course Vital Signs 08/30/23 08/30/23 00:29 04:53 Temperature 98 F 97.8 F Pulse Rate 109 H 102 H Respiratory 20 17 Rate Blood Pressure 132/96 123/90 O2 Sat by Pulse 100 100 Oximetry Medical Decision Making <Hubert Brannon - Last Filed: 08/30/23 02:13> <Juan Ramon Rodriguez - Last Filed: 08/31/23 05:06> - Medical Decision Making Quicknote portion performed. Signed Hubert Brannon PA-C (Hubert Brannon) The patient had CT of the brain which I interpreted as negative for acute bony injury and negative for acute intracranial hemorrhage Was pt. sent in by a medical professional or institution (Dr. PA, [facility], urgent care, hospital, or intermediate...) When possible be specific @ -Patient was urged to seek further evaluation after being seen at urgent care Did you speak to anyone other than the patient for history (EMS, parent, family, police, friend...)? What history was obtained from this source @ -[No] Did you review nursing and triage notes (agree or disagree)? Why? @ -[I reviewed and agree with nursing and triage notes] Were old charts reviewed (outside hosp., previous admission, EMS record, old EKG, old radiological studies, urgent care reports/EKG's, intermediate records)? Report findings @ -[No old charts were reviewed] Differential Diagnosis (chest pain, altered mental status, abdominal pain women, abdominal pain men, vaginal bleeding, weakness, fever, dyspnea, syncope, headache, dizziness, GI bleed, back pain, seizure, CVA, palpatations, mental health, musculoskeletal)? @ -[Differential Seizure: Recurrent seizure disorder, febrile seizure, alcohol withdrawal, stimulants, meningitis, encephalitis, intercranial hemorrhage, intracranial tumor, stroke, eclampsia, thyrotoxicosis, hypocalcemia, hyponatremia, hypernatremia, hypomagnesemia, psychogenic, this is not meant to be an all-inclusive list. EKG interpreted by me (3pts min.). @ -[As above] X-rays interpreted by me (1pt min.). @ -[None done] CT interpreted by me (1pt min.). @ -[Interpreted as above U/S interpreted by me (1pt. min.). @ -[None done] What testing was considered but not performed or refused? (CT, X-rays, U/S, labs)? Why? @ -[None] What meds were considered but not given or refused? Why? @ -[None] Did you discuss the management of the patient with other professionals (professionals i.e. , PA, [facility], lab, RT, psych nurse, drug abuse social worker, timber appraiser, teacher, customer service security officer, catalytic case operator)? Give summary @ -[No] Was smoking cessation discussed for >3mins.? @ -[No] Was critical care preformed (if so, how long)? @ -[No] Were there social determinants of health that impacted care today? How? (Homelessness, low income, unemployed, alcoholism, drug addiction, transportation, low edu. Level, literacy, decrease access to med. care, [facility], rehab)? @ -[No] Was there de-escalation of care discussed even if they declined (Discuss DNR or withdrawal of care, Hospice)? DNR status @ -[No] What co-morbidities impacted this encounter? (DM, HTN, Smoking, COPD, CAD, Cancer, CVA, ARF, Chemo, Hep., AIDS, mental health diagnosis, sleep apnea, morbid obesity)? @ -[Seizure disorder Was patient admitted / discharged? Hospital course, mention meds given and route, prescriptions, significant lab abnormalities, going to OR and other pertinent info. @ -[Patient is a 28-year-old woman with underlying history of seizures. She had 2 recent head injuries and presents with significant tenderness and hematoma near the occiput. For this reason CT scan is obtained to rule out skull fracture. The patient is to have follow-up with her neurologist to determine if she requires change to her medical management. Discussed that she may not drive according to [place] law until she is cleared by the neurologist. We discussed return parameters. Undiagnosed new problem with uncertain prognosis? @ -[No] Drug Therapy requiring intensive monitoring for toxicity (Heparin, Nitro, Insulin, Cardizem)? @ -[No] Were any procedures done? @ -[No] Diagnosis/symptom? @ -[History of recent seizures. Acute closed head injury with scalp hematoma Acute, or Chronic, or Acute on Chronic? @ -[Acute Uncomplicated (without systemic symptoms) or Complicated (systemic symptoms)? @ -[Uncomplicated Side effects of treatment? @ -[No] Exacerbation, Progression, or Severe Exacerbation? @ -[No] Poses a threat to life or bodily function? How? (Chest pain, [place], [place], pneumonia, PE, COPD, DKA, ARF, appy, cholecystitis, CVA, Diverticulitis, Homicidal, Suicidal, threat to staff... and all critical care pts) @ -[No] (Juan Ramon Rodriguez) Disposition <Hubert Brannon - Last Filed: 08/30/23 02:13> Is patient prescribed a controlled substance at d/c from ED?: No <Juan Ramon Rodriguez - Last Filed: 08/31/23 05:06> Clinical Impression: Closed head injury Disposition: HOME SELF-CARE Condition: Good Instructions (If sedation given, give patient instructions): Concussion (ED) Referrals: None,Stated [Primary Care Provider] - 1-2 days Arleth Bianchi MD [REFERRING] - 1-2 days
--- NOTE | 2023-08-30 04:15 | CT ---
EXAM: CT Head Without Intravenous Contrast CLINICAL HISTORY: ITS.REASON CT Reason: head injury s/p seizure with LOC TECHNIQUE: Axial computed tomography images of the head/brain without intravenous contrast. CTDI is 45.2 mGy and DLP is 990.1 mGy-cm. This CT exam was performed using one or more of the following dose reduction techniques: automated exposure control, adjustment of the mA and/or kV according to patient size, and/or use of iterative reconstruction technique. COMPARISON: No relevant prior studies available. FINDINGS: Brain: No hemorrhage or mass effect. Ventricles: No hydrocephalus. Bones/joints: Unremarkable. Soft tissues: Unremarkable. Sinuses: No air fluid level. Mastoid air cells: Clear. IMPRESSION: No acute hemorrhage, hydrocephalus, or mass effect. EXAM: CT Cervical Spine Without Intravenous Contrast CLINICAL HISTORY: ITS.REASON CT Reason: head injury s/p seizure with LOC TECHNIQUE: Axial computed tomography images of the cervical spine without intravenous contrast. CTDI is 9.8 mGy and DLP is 277.8 mGy-cm. This CT exam was performed using one or more of the following dose reduction techniques: automated exposure control, adjustment of the mA and/or kV according to patient size, and/or use of iterative reconstruction technique. COMPARISON: No relevant prior studies available. FINDINGS: Vertebrae: No acute fracture. Discs/spinal canal/neural foramina: Mild degenerative changes. Soft tissues: No prevertebral swelling. IMPRESSION: No acute fracture or subluxation.
[2023-08-30 05:33] VITALS: BP 123/90; PULSE 102; RESP 17; TEMP 97.8
== END 2023-08-30 04:53 | disposition home or self-care (01) ==
LOC: EC 00:25
DX: S09.90XA Unspecified injury of head, initial encounter (principal); F17.200 Nicotine dependence, unspecified, uncomplicated; Z88.8 Allergy status to other drugs, medicaments and biological substances; W22.8XXA Striking against or struck by other objects, initial encounter
CPT/HCPCS: 70450; 72125; 99283

== ENCOUNTER 2023-11-07 01:35 | Emergency (ER) | payer BC, OTHER ==
[2023-11-07 01:40] VITALS: BP 142/92; PULSE 107; RESP 20; TEMP 98.1
== END 2023-11-07 02:32 | disposition left against medical advice (07) ==
LOC: EC 01:35
DX: Z53.21 Procedure and treatment not carried out due to patient leaving prior to being seen by health care provider (principal)
CPT/HCPCS: 99499

== ENCOUNTER 2024-02-26 22:00 | Emergency (ER) | payer BC, OTHER ==
--- NOTE | 2024-02-26 22:59 | ED ---
Abdominal Pain HPI - General Chief Complaint: Abdominal Pain Stated Complaint: Abd Pain Time Seen by Provider: 02/26/24 22:22 Source: patient Mode of arrival: ambulatory - History of Present Illness Initial Comments: Patient is a 29-year-old female medical history kidney disease, heart failure, seizure disorder presenting for left lower quadrant abdominal pain nausea and vomiting. Patient states been going on last week and a half. States she vomits every time she eats. Sharp, intermittent. States emesis is green and frothy. Endorses dysuria, urgency, dark stools. No prior abdominal surgeries. No vaginal bleeding or discharge. No medications taken prior to arrival. Worsens with eating. No grossly bloody stools. States she felt feverish but had not temperature at home. Chest pain, shortness of breath, hematuria, though does endorse dark urine one week ago. - Related Data Home Medications Medication Instructions Recorded Confirmed Vit No.179/Iron/Folic 1 tab PO DAILY 04/05/23 04/05/23 [ Tablet] Previous Rx's Medication Instructions Recorded Labetalol [Trandate] 200 mg PO TID #90 tab 04/12/23 hydrALAZINE HCL [Apresoline] 20 mg PO QID #90 tab 04/12/23 Allergies Allergy/AdvReac Type Severity Reaction Status Date / Time chocolate flavor Allergy Anaphylaxis Verified 02/26/24 22:05 rubbing alcohol AdvReac Rash/Hives Uncoded 02/26/24 22:05 Review of Systems ROS Statement: Those systems with pertinent positive or pertinent negative responses have been documented in the HPI. ROS Other: All systems not noted in ROS Statement are negative. Past Medical History Past Medical History: Heart Failure, Seizure Disorder Additional Past Medical History / Comment(s): She reported having a seizure 1 week ago and that she takes Depakote for that. lupus History of Any Multi-Drug Resistant Organisms: None Reported Past Surgical History: Orthopedic Surgery Additional Past Surgical History / Comment(s): rt arm Past Psychological History: Anxiety, Bipolar, Schizophrenia Smoking Status: Current every day smoker, Vaper Past Alcohol Use History: None Reported Past Drug Use History: None Reported General Exam - General Exam Comments Initial Comments: PE: CONSTITUTIONAL: No apparent distress, well appearing SKIN: Warm, dry, no jaundice, hives or petechiae EYES: Pupils are equally round, extraocular movements intact without nystagmus, clear conjunctiva, non-icteric sclera HENT: Normocephalic, atraumatic, moist mucus membranes, oropharynx clear without exudates NECK: , Full range of motion, normal appearance PULMONARY: Clear to auscultation without wheezes, rhonchi, or rales, normal excursion, no accessory muscle use and no stridor CARDIOVASCULAR: Regular rate, rhythm, normal S1 and S2. No appreciated murmurs, rubs or gallops. Extremities are well-perfused. No lower extremity edema GASTROINTESTINAL: Soft, active bowel sounds throughout, tenderness palpation of left lower quadrant, suprapubic region, left CVA tenderness non-distended, no palpable masses, guarding with palpation of the left lower quadrant, no rebound no hepatosplenomegaly GENITOURINARY: MUSCULOSKELETAL: Extremities have no gross deformity, no edema, redness, or swelling. No calf swelling NEUROLOGIC:_a/o x 3, GCS 15, normal mentation and speech. Moves all extremities x 4 without motor or sensory deficit PSYCHIATRIC:_normal mood and affect, thought process is clear and linear Course Vital Signs 02/26/24 02/27/24 22:02 03:25 Temperature 99.2 F 97.8 F Pulse Rate 99 89 Respiratory 18 16 Rate Blood Pressure 128/85 110/74 O2 Sat by Pulse 100 100 Oximetry Medical Decision Making - Medical Decision Making Was pt. sent in by a medical professional or institution (MARK Fernandez, [facility], urgent care, hospital, or [facility]...) When possible be specific @ -No Did you speak to anyone other than the patient for history (EMS, parent, family, police, friend...)? What history was obtained from this source @ -No Did you review nursing and triage notes (agree or disagree)? Why? @ -I reviewed nursing and triage notes- States that patient is coming to the facility with complains of abdominal pain below her bellybutton, states she is increased frequency of urination and does have a history of kidney stones. States to me that her pain is more left lower quadrant Were old charts reviewed (outside hosp., previous admission, EMS record, old EKG, old radiological studies, urgent care reports/EKG's, [facility] records)? Report findings @ -Medical records reviewed Differential Diagnosis (chest pain, altered mental status, abdominal pain women, abdominal pain men, vaginal bleeding, weakness, fever, dyspnea, syncope, headache, dizziness, GI bleed, back pain, seizure, CVA, palpatations, mental health, musculoskeletal)? @Differential Abdominal Pain Women: Appendicitis, cholecystitis, diverticulosis, ischemic bowel, pancreatitis, hepatitis, UTI, gastroenteritis, incarcerated hernia, bowel obstruction, constipation, inflammatory bowel, peptic ulcer disease,perforated viscus, ovarian torsion, PID, kidney stone, this is not meant to be an all-inclusive list EKG interpreted by me (3pts min.). @ -As above X-rays interpreted by me (1pt min.). @No cardiomegaly, no consolidations CT interpreted by me (1pt min.). @No free air in the abdomen, no free fluid, no signs of obstruction U/S interpreted by me (1pt. min.). @ No free fluid in the pelvis on US pelvis, dilated CBD What testing was considered but not performed or refused? (CT, X-rays, U/S, labs)? Why? @ -None What meds were considered but not given or refused? Why? @ -None Did you discuss the management of the patient with other professionals (professionals i.e. , PA, UNIV[facility]ITY CONTROLLER, lab, RT, psych nurse, criminal justice social worker, police worker, teacher, police officer, case checker)? Give summary @ Case discussed with accepting ED physician Quique Was smoking cessation discussed for >3mins.? @ -No Was critical care preformed (if so, how long)? @ -No Were there social determinants of health that impacted care today? How? (Homelessness, low income, unemployed, alcoholism, drug addiction, transportation, low edu. Level, literacy, decrease access to med. care, retirement, rehab)? @ -No Was there de-escalation of care discussed even if they declined (Discuss DNR or withdrawal of care, Hospice)? @ -No What co-morbidities impacted this encounter? (DM, HTN, Smoking, COPD, CAD, Cancer, CVA, ARF, Chemo, Hep., AIDS, mental health diagnosis, sleep apnea, morbid obesity)? @ -None Was patient admitted / discharged? Hospital course, mention meds given and route, prescriptions, significant lab abnormalities, going to OR and other pertinent info. @Transferred to [facility] for GI consult Patient is a 29-year-old female presenting today for left lower quadrant abdominal pain, nausea, vomiting x 1 and half weeks. On my assessment ill- appearing but in no acute distress. Exam significant for suprapubic and left lower quadrant tenderness to palpation, left CVA tenderness. Plan for ultrasound pelvis to assess for ovarian torsion, CT abdomen pelvis without contrast as patient states she has a history of chronic kidney disease will avoid contrast. Urinalysis, CBC, CMP, lipase, amylase, pain control. Patient agreeable plan. I was alerted by RN that patient endorsed right sided chest pain after receiving morphine. EKG performed showed NSR, no STEMI., Troponin ordered. On my assessment patient state's pain was more in the RUQ and sharp, though is gradually improving, still present. On reexam positive Cardoso sign. US of the right upper quadrant was ordered. Ultrasound significant for contracted bladder with single prominent gallstone but no evidence for acute cholecystitis however did showed mild extrahepatic biliary dilation, recommends MRI /MRCP to follow up and further evaluate. Labs reviewed. Grossly within normal limits. Abnormal values not concerning for acute pathology related to presenting complaint. LFTs within normal limits. On reassessment patient continues to endorse right upper quadrant pain, discussed findings on ultrasound and discussed with patient that given persisent RUQ pain and concerning US plan for transfer to [facility] for MRCP. Patient is comfortable agreeable plan. Additional pain control ordered. Patient accepted for transfer by Dr. Lei. Pt transferred via private vehicle based on patient preference. Pt stable for transfer by private vehicle. Of note, urinalysis did show large leukocyte esterase, greater than 182 white blood cells, 22 red blood cells, many bacteria many yeast, however patient transferred prior to being able to administer antibiotics. Undiagnosed new problem with uncertain prognosis? @ -No Drug Therapy requiring intensive monitoring for toxicity (Heparin, Nitro, Insulin, Cardizem)? @ -No Were any procedures done? @ -No Diagnosis/symptom? @ -Choledocholithiasis, urinary tract infection Acute, or Chronic, or Acute on Chronic? @Acute Uncomplicated (without systemic symptoms) or Complicated (systemic symptoms)? @Complicated Side effects of treatment? @ -No Exacerbation, Progression, or Severe Exacerbation? @ -No Poses a threat to life or bodily function? How? (Chest pain, [place], [place], pneumonia, PE, COPD, DKA, ARF, appy, cholecystitis, CVA, Diverticulitis, Homicidal, Suicidal, threat to staff... and all critical care pts) @Yes, if allowed to continue could progress to acute cholecystitis or ascending cholangitis and result in sepsis or septic shock - Lab Data Result diagrams: 02/26/24 23:06 02/26/24 23:06 Lab Results 02/26/24 02/26/24 02/26/24 Range/Units 23:06 23:06 23:06 WBC 9.4 (3.8-10.6) k/uL RBC 4.99 (3.80-5.40) m/uL Hgb 14.5 (11.4-16.0) gm/dL Hct 43.9 (34.0-46.0) % MCV 87.9 (80.0-100.0) fL MCH 29.2 (25.0-35.0) pg MCHC 33.2 (31.0-37.0) g/dL RDW 12.9 (11.5-15.5) % Plt Count 207 (150-450) k/uL MPV 8.7 Neutrophils % 61 % Lymphocytes % 29 % Monocytes % 3 % Eosinophils % 4 % Basophils % 1 % Neutrophils # 5.7 (1.3-7.7) k/uL Lymphocytes # 2.7 (1.0-4.8) k/uL Monocytes # 0.3 (0-1.0) k/uL Eosinophils # 0.4 (0-0.7) k/uL Basophils # 0.1 (0-0.2) k/uL PT 10.1 (10.0-12.5) sec INR 0.9 (<1.2) APTT 22.2 (22.0-30.0) sec Sodium (137-145) mmol/L Potassium (3.5-5.1) mmol/L Chloride (98-107) mmol/L Carbon Dioxide (22-30) mmol/L Anion Gap mmol/L BUN (7-17) mg/dL Creatinine (0.52-1.04) mg/dL Est GFR (CKD-EPI)AfAm (>60 ml/min/1.73 sqM) Est GFR (CKD-EPI)NonAf (>60 ml/min/1.73 sqM) Glucose (74-99) mg/dL Plasma Lactic Acid Nic (0.7-2.0) mmol/L Calcium (8.4-10.2) mg/dL Total Bilirubin (0.2-1.3) mg/dL AST (14-36) U/L ALT (4-34) U/L Alkaline Phosphatase (38-126) U/L Troponin I (0.000-0.034) ng/mL Total Protein (6.3-8.2) g/dL Albumin (3.5-5.0) g/dL Amylase (30-110) U/L Lipase (23-300) U/L HCG, Quant mIU/mL Urine Color Yellow Urine Appearance Turbid H (Clear) Urine pH 5.5 (5.0-8.0) Ur Specific [place] 1.019 (1.001-1.035) Urine Protein Trace H (Negative) Urine Glucose (UA) Negative (Negative) Urine Ketones Negative (Negative) Urine Blood Small H (Negative) Urine Nitrite Negative (Negative) Urine Bilirubin Negative (Negative) Urine Urobilinogen 2.0 (<2.0) mg/dL Ur Leukocyte Esterase Large H (Negative) Urine RBC 22 H (0-5) /hpf Urine WBC >182 H (0-5) /hpf Calcium Oxalate Crystal Few H (None) /hpf Amorphous Sediment Rare H (None) /hpf Urine Bacteria Many H (None) /hpf Urine Yeast (Budding) Many H (None) /hpf 02/26/24 02/26/24 02/27/24 Range/Units 23:06 23:06 00:59 WBC (3.8-10.6) k/uL RBC (3.80-5.40) m/uL Hgb (11.4-16.0) gm/dL Hct (34.0-46.0) % MCV (80.0-100.0) fL MCH (25.0-35.0) pg MCHC (31.0-37.0) g/dL RDW (11.5-15.5) % Plt Count (150-450) k/uL MPV Neutrophils % % Lymphocytes % % Monocytes % % Eosinophils % % Basophils % % Neutrophils # (1.3-7.7) k/uL Lymphocytes # (1.0-4.8) k/uL Monocytes # (0-1.0) k/uL Eosinophils # (0-0.7) k/uL Basophils # (0-0.2) k/uL PT (10.0-12.5) sec INR (<1.2) APTT (22.0-30.0) sec Sodium 140 (137-145) mmol/L Potassium 4.1 (3.5-5.1) mmol/L Chloride 107 (98-107) mmol/L Carbon Dioxide 25 (22-30) mmol/L Anion Gap 8 mmol/L BUN 20 H (7-17) mg/dL Creatinine 0.66 (0.52-1.04) mg/dL Est GFR (CKD-EPI)AfAm >90 (>60 ml/min/1.73 sqM) Est GFR (CKD-EPI)NonAf >90 (>60 ml/min/1.73 sqM) Glucose 97 (74-99) mg/dL Plasma Lactic Acid Nic 1.7 (0.7-2.0) mmol/L Calcium 9.4 (8.4-10.2) mg/dL Total Bilirubin 0.5 (0.2-1.3) mg/dL AST 30 (14-36) U/L ALT 30 (4-34) U/L Alkaline Phosphatase 59 (38-126) U/L Troponin I <0.012 (0.000-0.034) ng/mL Total Protein 7.4 (6.3-8.2) g/dL Albumin 4.3 (3.5-5.0) g/dL Amylase 47 (30-110) U/L Lipase 78 (23-300) U/L HCG, Quant <2.4 mIU/mL Urine Color Urine Appearance (Clear) Urine pH (5.0-8.0) Ur Specific [place] (1.001-1.035) Urine Protein (Negative) Urine Glucose (UA) (Negative) Urine Ketones (Negative) Urine Blood (Negative) Urine Nitrite (Negative) Urine Bilirubin (Negative) Urine Urobilinogen (<2.0) mg/dL Ur Leukocyte Esterase (Negative) Urine RBC (0-5) /hpf Urine WBC (0-5) /hpf Calcium Oxalate Crystal (None) /hpf Amorphous Sediment (None) /hpf Urine Bacteria (None) /hpf Urine Yeast (Budding) (None) /hpf Disposition Clinical Impression: Choledocholithiasis, UTI (urinary tract infection) Disposition: OTHER INSTITUTION NOT DEFINED Condition: Stable Referrals: None,Stated [Primary Care Provider] - 1-2 days - Out of Hospital Transfer - Req. Specs Out of Hospital Transfer - Requested Specifics: Other Emergency Center
[2024-02-26] MEDS: SODIUM CHLORIDE 0.9% 1,000 ML IV STA (23:03)
[2024-02-26] MEDS: ONDANSETRON 4 MG/2 ML VIAL IVP STA (23:03)
[2024-02-26] MEDS: FAMOTIDINE 20 MG/2 ML VIAL IV STA (23:07)
[2024-02-26] MEDS: MORPHINE SULFATE 4 MG/ML SYRINGE IVP STA (23:16)
[2024-02-26] MEDS: KETOROLAC 15 MG/ML 1 ML VIAL IVP STA (23:24)
[2024-02-26] MEDS: PANTOPRAZOLE 40 MG/10 ML VIAL IVP STA (23:24)
[2024-02-26 23:34] LABS: Basophils # (A) 0.1 k/uL (0-0.2); Basophils % (A) 1 %; Eosinophils # (A) 0.4 k/uL (0-0.7); Eosinophils % (A) 4 %; HCT 43.9 % (34.0-46.0); HGB 14.5 gm/dL (11.4-16.0); Lymphocytes # (A) 2.7 k/uL (1.0-4.8); Lymphocytes % (A) 29 %; MCH 29.2 pg (25.0-35.0); MCHC 33.2 g/dL (31.0-37.0); MCV 87.9 fL (80.0-100.0); Mean Platelet Volume 8.7; Monocytes # (A) 0.3 k/uL (0-1.0); Monocytes % (A) 3 %; Neutrophils # (A) 5.7 k/uL (1.3-7.7); Neutrophils % (A) 61 %; Platelet Count 207 k/uL (150-450); RBC 4.99 m/uL (3.80-5.40); RDW 12.9 % (11.5-15.5); WBC 9.4 k/uL (3.8-10.6)
[2024-02-26 23:39] LABS: INR 0.9 (<1.2); Partial Thromboplastin Time 22.2 sec (22.0-30.0); Prothrombin Time 10.1 sec (10.0-12.5)
[2024-02-27 00:03] LABS: ALT 30 U/L (4-34); AST 30 U/L (14-36); African American GFR (CKD) >90 (>60 ml/min/1.73 sqM); Albumin 4.3 g/dL (3.5-5.0); Alkaline Phosphatase 59 U/L (38-126); Amylase 47 U/L (30-110); Anion Gap 8 mmol/L; Blood Urea Nitrogen 20 mg/dL (7-17); Calcium 9.4 mg/dL (8.4-10.2); Carbon Dioxide 25 mmol/L (22-30); Chloride 107 mmol/L (98-107); Glucose 97 mg/dL (74-99); Lipase 78 U/L (23-300); Non-African American GFR(CKD) >90 (>60 ml/min/1.73 sqM); Potassium 4.1 mmol/L (3.5-5.1); Sodium 140 mmol/L (137-145); Total Bilirubin 0.5 mg/dL (0.2-1.3); Total Protein 7.4 g/dL (6.3-8.2)
--- NOTE | 2024-02-27 00:12 | US ---
EXAMINATION TYPE: US transvaginal DATE OF EXAM: 02/26/2024 COMPARISON: None. CLINICAL INDICATION: Female, 29 years old with history of LLQ pain, torsion?; Pain TECHNIQUE: Transvaginal (TV). Transvaginal grayscale sonographic images of the pelvis were acquired. Doppler imaging: Color Doppler Images were obtained. Spectral doppler images were obtained. FINDINGS: EXAM MEASUREMENTS: Uterus: 8.8 x 4.8 x 6.3 cm Endometrial Stripe: 1.0 cm Right Ovary: 2.9 x 2.8 x 1.9 cm Left Ovary: 3.3 x 1.8 x 1.9 cm 1. Uterus: Anteverted Heterogeneous 2. Endometrium: wnl 3. Right Ovary: wnl 4. Left Ovary: wnl Spectral, color and waveform doppler imaging shows good arterial and venous flow within the ovaries ; 5. Bilateral Adnexa: wnl 6. Posterior cul-de-sac: wnl IMPRESSION: Symmetric normal-size ovaries with bilateral blood flow identified. Unremarkable study. [facility], , 02/27/2024 12:09 AM
[2024-02-27 00:19] LABS: HCG,Quantitative Serum <2.4 mIU/mL
--- NOTE | 2024-02-27 01:02 | XR ---
EXAMINATION TYPE: XR chest 2V DATE OF EXAM: 02/27/2024 COMPARISON: Chest x-ray July 04, 2020 HISTORY: Sharp right-sided chest pain TECHNIQUE: Frontal and lateral views of the chest are obtained. FINDINGS: There is no focal air space opacity, pleural effusion, or pneumothorax seen. The cardiac silhouette size remains within normal limits. There is fracture of the posterior lateral right ninth rib suspected old but new from 2020 study. Pectus excavatum deformity on the lateral view is noted. IMPRESSION: No acute cardiopulmonary process. [facility], , 02/27/2024 1:00 AM
--- NOTE | 2024-02-27 01:08 | CT ---
EXAMINATION TYPE: CT abdomen pelvis wo con DATE OF EXAM: 02/27/2024 HISTORY: Patient is coming to facility with complaints of abdominal pain below her belly button. Elyssa ent states she has increased in frequency with urination. Patient states she does have a history of k idney stones. Left flank pain CT DLP: 358 mGycm. Automated Exposure Control for Dose Reduction was Utilized. TECHNIQUE: CT scan of the abdomen and pelvis is performed without oral or IV contrast. COMPARISON: NONE FINDINGS: Within the limitations of a non-contrast study, the following observations are made. LUNG BASES: Atelectasis Excavatum deformity is noted. LIVER/GB: Contracted stone filled gallbladder. Mild extrahepatic biliary dilatation up to 9 mm PANCREAS: No significant abnormality is seen. SPLEEN: No significant abnormality is seen. ADRENALS: No significant abnormality is seen. KIDNEYS: There is 2 mm nonobstructing calculus upper pole left kidney coronal image 57. No right-side d nephrolithiasis. No hydronephrosis seen bilaterally. BOWEL: Dock-os-nqjbcnot fecal prominence in the transverse colon. No abnormal small or large bowel di latation. Low-lying cecum into the right pelvis GENITAL ORGANS: Retroflexed uterus.. LYMPH NODES: No greater than 1cm abdominal or pelvic lymph nodes are appreciated. OSSEOUS STRUCTURES: No significant abnormality is seen. OTHER: No significant additional abnormality is seen. IMPRESSION: 1. Nonobstructing 2 mm left renal calculus. No hydronephrosis or obstructing ureteral calculus seen b ilaterally. 2. Mild to moderate proximal to mid colonic fecal stasis or constipation. No bowel obstruction. 3. Contracted stone filled gallbladder with mild extrahepatic biliary dilatation. If there is concern for acute cholecystitis further investigation with ultrasound should be considered. [facility], , 02/27/2024 1:06 AM
[2024-02-27 01:42] LABS: Amorphous Sediment,Urine Rare /hpf; Appearance,Urine Turbid (Clear); Bacteria,Urine Many /hpf; Bilirubin,Urine Negative (Negative); Blood,Urine Small (Negative); Budding Yeast,Urine Many /hpf; Calcium Oxalate Crystals,Urine Few /hpf; Color,Urine Yellow; Glucose,Urine (UA) Negative (Negative); Ketones,Urine Negative (Negative); Leukocyte Esterase,Urine Large (Negative); Nitrite,Urine Negative (Negative); PH, Urine 5.5 (5.0-8.0); Protein,Urine Trace (Negative); RBC,Urine 22 /hpf (0-5); Specific Gravity,Urine 1.019 (1.001-1.035); WBC,Urine >182 /hpf (0-5)
--- NOTE | 2024-02-27 01:46 | US ---
EXAMINATION TYPE: US abdomen limited DATE OF EXAM: 02/27/2024 COMPARISON: Same day CT CLINICAL INDICATION: Female, 29 years old with history of concern for cholecystitis on CT; Pain TECHNIQUE: Grayscale and color Doppler imaging of the right upper quadrant was performed. FINDINGS: EXAM MEASUREMENTS: Liver Length: 11.7 cm Gallbladder Wall: 0.3 cm CBD: 0.9 cm Right Kidney: 10.3 x 2.7 x 4.3 cm CREATIVE WRITING PROFESSOR NOTES: Pancreas: wnl, tail obscured tail obscured by overlying bowel gas Liver: wnl Gallbladder: Contracted with single gallstone, wall thickness upper limits of normal Evidence for sonographic Cardoso's sign: No CBD: Dilated Right Kidney: No evidence of hydro Visualized pancreas is within normal limits. Visualized liver is unremarkable. There is mobile shadow ing gallstone within contracted gallbladder. Mild extrahepatic biliary dilatation up to 9 mm is confi rmed. No pericholecystic fluid or abnormal gallbladder wall thickening. Sonographic Cardoso's sign not dictated. Right kidney shows no hydronephrosis. IMPRESSION: 1. Contracted gallbladder with single prominent gallstone. No ultrasound evidence for acute cholecyst itis. 2. Mild extrahepatic biliary dilatation is confirmed. Consider MRI/MRCP follow-up to further evaluate . [facility], , 02/27/2024 1:43 AM
[2024-02-27 03:26] VITALS: BP 110/74; PULSE 89; RESP 16; TEMP 97.8
[2024-02-27] MEDS: HYDROmorphone 1 MG/ML 1 ML SYRINGE IVP STA (03:27)
== END 2024-02-27 03:42 | disposition other institution (70) ==
LOC: EC 22:00
DX: N39.0 Urinary tract infection, site not specified (principal); K80.50 Calculus of bile duct without cholangitis or cholecystitis without obstruction; B96.89 Other specified bacterial agents as the cause of diseases classified elsewhere; F17.200 Nicotine dependence, unspecified, uncomplicated; Z91.02 Food additives allergy status; Z91.09 Other allergy status, other than to drugs and biological substances
CPT/HCPCS: 36415 ×2; 93005; 80053; 82150; 83605; 83690; 84484; 85025; 85610; 85730; 81001; 84702; 87086; 71046; 93975; 76705; 76830; 74176; 99285; 96374; 96375 ×4; 96361; J2270; J2405; J3490; J1885; J2470; 87077; 87186

== ENCOUNTER 2024-04-07 11:43 | Observation (INO) | payer OTHER ==
--- NOTE | 2024-04-07 12:21 | ED ---
Abdominal Pain HPI - General Chief Complaint: Abdominal Pain Stated Complaint: Dizziness,Vomiting Source: patient, RN notes reviewed, old records reviewed Mode of arrival: ambulatory Limitations: no limitations - History of Present Illness Initial Comments: This is a 29-year-old female to the ER for what she believes is gallbladder pain. Right upper quadrant epigastric abdominal pain with nausea and vomiting. Prior ER visit a month ago with evaluation of Simi Camden in regards to her gallbladder, patient is unsure of findings or treatment plan, she is having persistent pain with nausea and vomiting MD Complaint: abdominal pain -: month(s) Location: RUQ Radiation: RUQ, epigastric Migration to: epigastric Severity: moderate Severity scale (1-10): 7 Quality: fullness, sharp Consistency: intermittent Improves With: nothing Worsens With: eating Associated Symptoms: nausea Treatments Prior to Arrival: other (0) - Related Data Home Medications Medication Instructions Recorded Confirmed No Known Home Medications 04/07/24 04/07/24 Allergies Allergy/AdvReac Type Severity Reaction Status Date / Time chocolate flavor Allergy Anaphylaxis Verified 04/07/24 15:48 rubbing alcohol Allergy Rash/Hives Uncoded 04/07/24 15:48 Review of Systems ROS Statement: Those systems with pertinent positive or pertinent negative responses have been documented in the HPI. ROS Other: All systems not noted in ROS Statement are negative. Past Medical History Past Medical History: Heart Failure, Seizure Disorder Additional Past Medical History / Comment(s): She reported having a seizure 1 week ago and that she takes Depakote for that. lupus History of Any Multi-Drug Resistant Organisms: None Reported Past Surgical History: Orthopedic Surgery Additional Past Surgical History / Comment(s): rt arm Past Psychological History: Anxiety, Bipolar, Schizophrenia Smoking Status: Current every day smoker, Vaper Past Alcohol Use History: None Reported Past Drug Use History: None Reported General Exam Limitations: no limitations General appearance: alert, in no apparent distress Head exam: Present: atraumatic, normocephalic, normal inspection Eye exam: Present: normal appearance, PERRL, EOMI. Absent: scleral icterus, conjunctival injection, periorbital swelling ENT exam: Present: normal exam, mucous membranes moist Neck exam: Present: normal inspection. Absent: tenderness, meningismus, lymphadenopathy Respiratory exam: Present: normal lung sounds bilaterally. Absent: respiratory distress, wheezes, rales, rhonchi, stridor Cardiovascular Exam: Present: regular rate, normal rhythm, normal heart sounds. Absent: systolic murmur, diastolic murmur, rubs, gallop, clicks GI/Abdominal exam: Present: soft, normal bowel sounds. Absent: distended, tenderness, guarding, rebound, rigid Extremities exam: Present: normal inspection, full ROM, normal capillary refill. Absent: tenderness, pedal edema, joint swelling, calf tenderness Back exam: Present: normal inspection Neurological exam: Present: alert, oriented X3, CN II-XII intact Psychiatric exam: Present: normal affect, normal mood Skin exam: Present: warm, dry, intact, normal color. Absent: rash Course Vital Signs 04/07/24 04/07/24 11:45 14:26 Temperature 97.7 F Pulse Rate 111 H 73 Respiratory 18 18 Rate Blood Pressure 148/97 131/89 O2 Sat by Pulse 100 99 Oximetry - Reevaluation(s) Reevaluation #1: 04/07/24 13:23 Medical records reviewed Reevaluation #2: 04/07/24 13:23 Patient symptoms are improved Reevaluation #3: 04/07/24 14:45 patients symptoms are improved Reevaluation #4: Was pt. sent in by a medical professional or institution (, PA, SILO MAN, urgent care, hospital, or long-term...) When possible be specific @ -no Did you speak to anyone other than the patient for history (EMS, parent, family, police, friend...)? What history was obtained from this source @ -no Did you review nursing and triage notes (agree or disagree)? Why? @ -agree Are old charts reviewed (outside hosp., previous admission, EMS record, old EKG, old radiological studies, urgent care reports/EKG's, long-term records)? Report findings @ -yes Differential Diagnosis (chest pain, altered mental status, abdominal pain women, abdominal pain men, vaginal bleeding, weakness, fever, dyspnea, syncope, headache, dizziness, GI bleed, back pain, seizure, CVA, palpatations, mental health, musculoskeletal)? @ -prior EKG interpreted by me (3pts min.). @ -yes X-rays interpreted by me (1pt min.). @ -yes negative for acute disease CT interpreted by me (1pt min.). @ -no U/S interpreted by me (1pt. min.). @ -no What testing was considered but not performed or refused? (CT, X-rays, U/S, labs)? Why? @ -none What meds were considered but not given or refused? Why? @ -none Did you discuss the management of the patient with other professionals (professionals i.e. DrMaribel, PA, SILO MAN, lab, RT, psych nurse, geriatric social worker, mixer diamond powder, teacher, transit authority police officer, residential case manager)? Give summary @ -no Was smoking cessation discussed for >3mins.? @ -no Was critical care preformed (if so, how long)? @ -no Were there social determinants of health that impacted care today? How? (Homelessness, low income, unemployed, alcoholism, drug addiction, transportation, low edu. Level, literacy, decrease access to med. care, penitentiary, rehab)? @ -none Was there de-escalation of care discussed even if they declined (Discuss DNR or withdrawal of care, Hospice)? DNR status @ -no What co-morbidities impacted this encounter? (DM, HTN, Smoking, COPD, CAD, Cancer, CVA, ARF, Chemo, Hep., AIDS, mental health diagnosis, sleep apnea, morbid obesity)? @ -none Was patient admitted / discharged? Hospital course, mention meds given and route, prescriptions, significant lab abnormalities, going to OR and other pertinent info. @ - Undiagnosed new problem with uncertain prognosis? @ -no Drug Therapy requiring intensive monitoring for toxicity (Heparin, Nitro, Insulin, Cardizem)? @ -no Were any procedures done? @ -no Diagnosis/symptom? @ - Acute, or Chronic, or Acute on Chronic? @ -Acute Uncomplicated (without systemic symptoms) or Complicated (systemic symptoms)? @ -Complicated Side effects of treatment? @ -no Exacerbation, Progression, or Severe Exacerbation? @ -exacerbation Poses a threat to life or bodily function? How? (Chest pain, [place], [place], pneumonia, PE, COPD, DKA, ARF, appy, cholecystitis, CVA, Diverticulitis, Homicidal, Suicidal, threat to staff... and all critical care pts) @ -yes Reevaluation #5: Differential Abdominal Pain Women: Appendicitis, Cholecystitis, diverticulosis, ischemic bowel, pancreatitis, hepatitis, UTI, gastroenteritis, AAA, incarcerated hernia, bowel obstruction, constipation, inflammatory bowel, hepatitis, peptic ulcer disease, splenic infarction, perforated viscus, vulvitis, ovarian torsion, PID, kidney stone, placenta abruption, this is not meant to be an all-inclusive list - Consultations Consultation #1: Spoke with Dr. Spain who will see this patient Medical Decision Making - Medical Decision Making 29 female to ER for evaluation of gallbladder pain biliary colic ultrasound positive for cholecystitis and patient will be admitted for surgical evaluation - Lab Data Result diagrams: 04/07/24 12:47 04/07/24 12:47 Lab Results 04/07/24 04/07/24 04/07/24 Range/Units 12:47 12:47 14:25 WBC 7.5 (3.8-10.6) k/uL RBC 4.80 (3.80-5.40) m/uL Hgb 13.8 (11.4-16.0) gm/dL Hct 42.2 (34.0-46.0) % MCV 88.0 (80.0-100.0) fL MCH 28.7 (25.0-35.0) pg MCHC 32.6 (31.0-37.0) g/dL RDW 12.5 (11.5-15.5) % Plt Count 218 (150-450) k/uL MPV 8.4 Neutrophils % 49 % Lymphocytes % 41 % Monocytes % 4 % Eosinophils % 4 % Basophils % 1 % Neutrophils # 3.7 (1.3-7.7) k/uL Lymphocytes # 3.0 (1.0-4.8) k/uL Monocytes # 0.3 (0-1.0) k/uL Eosinophils # 0.3 (0-0.7) k/uL Basophils # 0.1 (0-0.2) k/uL Sodium 137 (137-145) mmol/L Potassium 3.3 L (3.5-5.1) mmol/L Chloride 108 H (98-107) mmol/L Carbon Dioxide 25 (22-30) mmol/L Anion Gap 4 mmol/L BUN 11 (7-17) mg/dL Creatinine 0.67 (0.52-1.04) mg/dL Est GFR (CKD-EPI)AfAm >90 (>60 ml/min/1.73 sqM) Est GFR (CKD-EPI)NonAf >90 (>60 ml/min/1.73 sqM) Glucose 119 H (74-99) mg/dL Calcium 9.0 (8.4-10.2) mg/dL Total Bilirubin 0.6 (0.2-1.3) mg/dL AST 21 (14-36) U/L ALT 20 (4-34) U/L Alkaline Phosphatase 71 (38-126) U/L Total Protein 6.5 (6.3-8.2) g/dL Albumin 3.9 (3.5-5.0) g/dL Amylase 47 (30-110) U/L Lipase 50 (23-300) U/L Urine Color Colorless Urine Appearance Clear (Clear) Urine pH 6.5 (5.0-8.0) Ur Specific [place] 1.011 (1.001-1.035) Urine Protein Negative (Negative) Urine Glucose (UA) Negative (Negative) Urine Ketones Negative (Negative) Urine Blood Negative (Negative) Urine Nitrite Negative (Negative) Urine Bilirubin Negative (Negative) Urine Urobilinogen <2.0 (<2.0) mg/dL Ur Leukocyte Esterase Negative (Negative) Urine HCG, Qual (Not Detectd) 04/07/24 Range/Units 14:25 WBC (3.8-10.6) k/uL RBC (3.80-5.40) m/uL Hgb (11.4-16.0) gm/dL Hct (34.0-46.0) % MCV (80.0-100.0) fL MCH (25.0-35.0) pg MCHC (31.0-37.0) g/dL RDW (11.5-15.5) % Plt Count (150-450) k/uL MPV Neutrophils % % Lymphocytes % % Monocytes % % Eosinophils % % Basophils % % Neutrophils # (1.3-7.7) k/uL Lymphocytes # (1.0-4.8) k/uL Monocytes # (0-1.0) k/uL Eosinophils # (0-0.7) k/uL Basophils # (0-0.2) k/uL Sodium (137-145) mmol/L Potassium (3.5-5.1) mmol/L Chloride (98-107) mmol/L Carbon Dioxide (22-30) mmol/L Anion Gap mmol/L BUN (7-17) mg/dL Creatinine (0.52-1.04) mg/dL Est GFR (CKD-EPI)AfAm (>60 ml/min/1.73 sqM) Est GFR (CKD-EPI)NonAf (>60 ml/min/1.73 sqM) Glucose (74-99) mg/dL Calcium (8.4-10.2) mg/dL Total Bilirubin (0.2-1.3) mg/dL AST (14-36) U/L ALT (4-34) U/L Alkaline Phosphatase (38-126) U/L Total Protein (6.3-8.2) g/dL Albumin (3.5-5.0) g/dL Amylase (30-110) U/L Lipase (23-300) U/L Urine Color Urine Appearance (Clear) Urine pH (5.0-8.0) Ur Specific [place] (1.001-1.035) Urine Protein (Negative) Urine Glucose (UA) (Negative) Urine Ketones (Negative) Urine Blood (Negative) Urine Nitrite (Negative) Urine Bilirubin (Negative) Urine Urobilinogen (<2.0) mg/dL Ur Leukocyte Esterase (Negative) Urine HCG, Qual Not Detected (Not Detectd) - Radiology Data Radiology results: report reviewed (Ultrasound positive for cholecystitis), imag e reviewed Disposition Clinical Impression: Abdominal pain, Biliary colic, Cholecystitis Disposition: ADMITTED IP TO THIS [facility] Condition: Good Is patient prescribed a controlled substance at d/c from ED?: No Time of Disposition: 14:30
[2024-04-07] MEDS: SODIUM CHLORIDE 0.9% 1,000 ML IV STA (12:35)
[2024-04-07] MEDS: HYDROmorphone 0.5 MG/0.5 ML SYRINGE IVP STA ×2 (12:38→14:52)
[2024-04-07] MEDS: ONDANSETRON 4 MG/2 ML VIAL IVP STA (12:38)
[2024-04-07] MEDS: KETOROLAC 15 MG/ML 1 ML VIAL IVP STA (12:38)
[2024-04-07 12:54] LABS: Basophils # (A) 0.1 k/uL (0-0.2); Basophils % (A) 1 %; Eosinophils # (A) 0.3 k/uL (0-0.7); Eosinophils % (A) 4 %; HCT 42.2 % (34.0-46.0); HGB 13.8 gm/dL (11.4-16.0); Lymphocytes % (A) 41 %; MCH 28.7 pg (25.0-35.0); MCHC 32.6 g/dL (31.0-37.0); Mean Platelet Volume 8.4; Monocytes # (A) 0.3 k/uL (0-1.0); Monocytes % (A) 4 %; Neutrophils # (A) 3.7 k/uL (1.3-7.7); Neutrophils % (A) 49 %; Platelet Count 218 k/uL (150-450); RDW 12.5 % (11.5-15.5); WBC 7.5 k/uL (3.8-10.6)
[2024-04-07 13:10] LABS: ALT 20 U/L (4-34); AST 21 U/L (14-36); African American GFR (CKD) >90 (>60 ml/min/1.73 sqM); Albumin 3.9 g/dL (3.5-5.0); Alkaline Phosphatase 71 U/L (38-126); Amylase 47 U/L (30-110); Anion Gap 4 mmol/L; Blood Urea Nitrogen 11 mg/dL (7-17); Carbon Dioxide 25 mmol/L (22-30); Chloride 108 mmol/L (98-107); Glucose 119 mg/dL (74-99); Lipase 50 U/L (23-300); Non-African American GFR(CKD) >90 (>60 ml/min/1.73 sqM); Potassium 3.3 mmol/L (3.5-5.1); Sodium 137 mmol/L (137-145); Total Bilirubin 0.6 mg/dL (0.2-1.3); Total Protein 6.5 g/dL (6.3-8.2)
--- NOTE | 2024-04-07 13:31 | US ---
EXAMINATION TYPE: US gallbladder DATE OF EXAM: 04/07/2024 COMPARISON: NONE CLINICAL INDICATION: Female, 29 years old with history of pain; pain nausea and vomiting hx of gallst ones. TECHNIQUE: Grayscale and color Doppler imaging of the right upper quadrant was performed. FINDINGS: EXAM MEASUREMENTS: Liver Length: 15.9 cm Gallbladder Wall: .3 cm CBD: 1 cm Right Kidney: 9.9 x 3.2 x 5.4 cm JUNIOR ART DIRECTOR NOTES: Pancreas: Tail obscured by overlying bowel gas Liver: wnl Gallbladder: Multiple stones visualized near neck. Evidence for sonographic Cardoso's sign: yes CBD: Dilated Right Kidney: No hydronephrosis or masses seen IMPRESSION: 1 cholelithiasis. There is thickened gallbladder wall and prominent common bile duct. Correlate for a cute cholecystitis. [facility], , 04/07/2024 1:28 PM
[2024-04-07] MEDS ORDERED: HYDROmorphone 0.5 MG/0.5 ML SYRINGE IVP PRN (14:42)
[2024-04-07] MEDS ORDERED: NALOXONE 0.4 MG/ML 1 ML VIAL IV PRN (14:42)
[2024-04-07] MEDS: IBUPROFEN 600 MG STARTER PACK 4 TAB BTL PO STA (14:44)
[2024-04-07] MEDS: ONDANSETRON 4 MG ODT STARTER PACK 2 TAB BTL PO STA (14:45)
[2024-04-07] MEDS: traMADol 50 MG STARTER PACK 3 TAB BTL PO STA (14:45)
[2024-04-07 14:49] LABS: Appearance,Urine Clear (Clear); Bilirubin,Urine Negative (Negative); Blood,Urine Negative (Negative); Color,Urine Colorless; Glucose,Urine (UA) Negative (Negative); Ketones,Urine Negative (Negative); Leukocyte Esterase,Urine Negative (Negative); Nitrite,Urine Negative (Negative); PH, Urine 6.5 (5.0-8.0); Protein,Urine Negative (Negative); Specific Gravity,Urine 1.011 (1.001-1.035); Urobilinogen,Urine <2.0 mg/dL (<2.0)
[2024-04-07] MEDS: SODIUM CHLORIDE 0.9% 1,000 ML IV SCH (14:51)
[2024-04-07] MEDS: PROCHLORPERAZINE INJ 10 MG/2 ML VIAL IVP STA (14:52)
[2024-04-07] MEDS: AMPICILLIN-SULBACTAM 3 GM in SODIUM CHLORIDE 0.9% 100 ML IVPB STA (14:53)
[2024-04-07] MEDS: POTASSIUM BICARBONATE/CIT AC 20 MEQ TABLET.EFF PO ONE (15:44)
--- NOTE | 2024-04-07 16:17 | P.GSHP ---
History of Present Illness H&P Date: 04/07/24 Chief Complaint: Acute cholecystitis 29-year-old female presents to the ER complaining of right upper quadrant pain. Patient points to the right subcostal location. Patient was in the ER about a month ago. She was transferred to [facility] because of a dilated common bile duct. Patient is not the best historian however she does not believe that they did an MRI or any additional imaging while she was there. Apparently she was told to follow-up as outpatient for cholecystectomy at the time. Patient actually states that they mentioned that they could not do the surgery or the MRI at that time because of her insurance status. Since then patient has been having this pain intermittently. Worse in the last few days. She has had episodes of nausea and vomiting as well. Denies any change in the color of her skin urine or stool. Patient had ultrasound today showing multiple gallstones near the neck. Sonographic Cardoso sign was positive., Bile duct 1 cm. Thickened gallbladder wall noted. Patient's liver enzymes are normal. Mild tachycardia on arrival. Past Medical History Past Medical History: Heart Failure, Seizure Disorder Additional Past Medical History / Comment(s): She reported having a seizure 1 week ago and that she takes Depakote for that. lupus History of Any Multi-Drug Resistant Organisms: None Reported Past Surgical History: Orthopedic Surgery Additional Past Surgical History / Comment(s): rt arm Past Psychological History: Anxiety, Bipolar, Schizophrenia Smoking Status: Current every day smoker, Vaper Past Alcohol Use History: None Reported Past Drug Use History: None Reported Medications and Allergies Home Medications Medication Instructions Recorded Confirmed Type No Known Home Medications 04/07/24 04/07/24 History Allergies Allergy/AdvReac Type Severity Reaction Status Date / Time chocolate flavor Allergy Anaphylaxis Verified 04/07/24 15:48 rubbing alcohol Allergy Rash/Hives Uncoded 04/07/24 15:48 Surgical - Exam Vital Signs Temp Pulse Resp BP Pulse Ox 97.7 F 111 H 18 148/97 100 04/07/24 11:45 04/07/24 11:45 04/07/24 11:45 04/07/24 11:45 04/07/24 11:45 Physical exam: General: Well-developed, well-nourished HEENT: Normocephalic, sclerae nonicteric Abdomen: Right upper quadrant tenderness nondistended Extremities: No edema Neuro: Alert and oriented Results - Labs 04/07/24 12:47 04/07/24 12:47 Abnormal Lab Results - Last 24 Hours (Table) 04/07/24 Range/Units 12:47 Potassium 3.3 L (3.5-5.1) mmol/L Chloride 108 H (98-107) mmol/L Glucose 119 H (74-99) mg/dL Diabetes panel 04/07/24 Range/Units 12:47 Sodium 137 (137-145) mmol/L Potassium 3.3 L (3.5-5.1) mmol/L Chloride 108 H (98-107) mmol/L Carbon Dioxide 25 (22-30) mmol/L BUN 11 (7-17) mg/dL Creatinine 0.67 (0.52-1.04) mg/dL Glucose 119 H (74-99) mg/dL Calcium 9.0 (8.4-10.2) mg/dL AST 21 (14-36) U/L ALT 20 (4-34) U/L Alkaline Phosphatase 71 (38-126) U/L Total Protein 6.5 (6.3-8.2) g/dL Albumin 3.9 (3.5-5.0) g/dL Calcium panel 04/07/24 Range/Units 12:47 Calcium 9.0 (8.4-10.2) mg/dL Albumin 3.9 (3.5-5.0) g/dL Pituitary panel 04/07/24 Range/Units 12:47 Sodium 137 (137-145) mmol/L Potassium 3.3 L (3.5-5.1) mmol/L Chloride 108 H (98-107) mmol/L Carbon Dioxide 25 (22-30) mmol/L BUN 11 (7-17) mg/dL Creatinine 0.67 (0.52-1.04) mg/dL Glucose 119 H (74-99) mg/dL Calcium 9.0 (8.4-10.2) mg/dL Adrenal panel 04/07/24 Range/Units 12:47 Sodium 137 (137-145) mmol/L Potassium 3.3 L (3.5-5.1) mmol/L Chloride 108 H (98-107) mmol/L Carbon Dioxide 25 (22-30) mmol/L BUN 11 (7-17) mg/dL Creatinine 0.67 (0.52-1.04) mg/dL Glucose 119 H (74-99) mg/dL Calcium 9.0 (8.4-10.2) mg/dL Total Bilirubin 0.6 (0.2-1.3) mg/dL AST 21 (14-36) U/L ALT 20 (4-34) U/L Alkaline Phosphatase 71 (38-126) U/L Total Protein 6.5 (6.3-8.2) g/dL Albumin 3.9 (3.5-5.0) g/dL Assessment and Plan (1) Acute cholecystitis due to biliary calculus Narrative/Plan: 29-year-old female with acute calculus cholecystitis. Will proceed with laparoscopic, possible open cholecystectomy at this time. We discussed the patient's CAT scan and ultrasound findings revealing dilated biliary tree. Liver enzymes normal. Likelihood of choledocholithiasis is low at this time. Potential need for ERCP postoperatively was discussed. Risks of bleeding, infection, bile leak, bile duct injury, retained common bile duct stone, trocar injury, conversion to an open procedure, hernia, anesthesia related complications were reviewed. The patient understands and wishes to proceed. Current Visit: Yes Status: Acute Code(s): K80.00 - CALCULUS OF GALLBLADDER W ACUTE CHOLECYST W/O OBSTRUCTION SNOMED Code(s): 34865024693708
[2024-04-07] MEDS: ONDANSETRON 4 MG/2 ML VIAL IVP PRN (16:26)
[2024-04-07] MEDS: DEXAMETHASONE SOD PHOSPHATE 4 MG/ML 1 ML VIAL IVP STA (16:26)
[2024-04-07] MEDS: SCOPOLAMINE 1 MG/72 HR PATCH TRANSDERM STA (16:27)
[2024-04-07] MEDS ORDERED: ROCURONIUM 10 MG/ML (5 ML VIAL) IV ONE (16:28)
[2024-04-07] MEDS ORDERED: MIDAZOLAM 2 MG/2 ML VIAL ONE (16:28)
[2024-04-07] MEDS ORDERED: NEOSTIGMINE 1 MG/ML 10 ML VIAL ONE (16:28)
[2024-04-07] MEDS ORDERED: GLYCOPYRROLATE 0.2 MG/ML 2 ML VIAL ONE (16:28)
[2024-04-07] MEDS ORDERED: LIDOCAINE 1% INJ 10MG/ML (20 ML MDV) ONE (16:28)
[2024-04-07] MEDS ORDERED: fentaNYL (PF) 50 MCG/ML 2 ML AMP ONE (16:28)
[2024-04-07] MEDS ORDERED: ePHEDrine 50 MG/ML 1 ML VIAL ONE (16:28)
[2024-04-07] MEDS ORDERED: SUCCINYLCHOLINE CHLORIDE 200 MG/10 ML VIAL IV ONE (16:28)
[2024-04-07] MEDS ORDERED: PROPOFOL 10 MG/ML 20 ML VIAL IV ONE (16:28)
[2024-04-07] MEDS: IV FLUID CONTINUATION 1,000 ML IV ONE (16:30)
[2024-04-07] MEDS: LIDOCAINE 1%-EPI 1:100,000 20 ML VIAL SQ ONE (16:59)
[2024-04-07] MEDS: LACTATED RINGERS 1,000 ML IV ONE (17:26)
[2024-04-07] MEDS ORDERED: ACETAMINOPHEN TAB 325 MG TAB PO PRN (17:37)
[2024-04-07] MEDS ORDERED: HYDROmorphone 1 MG/ML 1 ML SYRINGE IVP PRN (17:37)
--- NOTE | 2024-04-07 17:39 | P.OP ---
Date of Procedure: 04/07/24 Procedure(s) Performed: PREOPERATIVE DIAGNOSIS: Acute cholecystitis POSTOPERATIVE DIAGNOSIS: Same PROCEDURE: Laparoscopic cholecystectomy SURGEON: Darcy EBL: Jenn brady ANESTHESIA: Gen. COMPLICATIONS: None OPERATIVE PROCEDURE: The patient was brought and placed on the operating room table in the supine position. The patient was placed under general anesthesia at that time. The abdomen was prepped and draped in the usual sterile fashion. A small vertical infraumbilical incision was made. The fascia was grasped with the Amy forceps. The fascia was retracted anteriorly. The Veress needle was advanced into the peritoneal cavity. The saline drop test was normal. Insufflation took place up to 15 mmHg. A 5 mm optical trocar was advanced and the peritoneal cavity. 2 additional 5 mm trochars were placed in the right upper quadrant under direct visualization. A 12 mm trocar was advanced into the epigastric incision site. The gallbladder was inflamed. There was some adhesions to the gallbladder that was lysed using both blunt dissection and electrocautery. There was a 1.5 cm stone impacted in the neck of the gallbladder. The gallbladder was retracted superiorly and laterally. The peritoneum overlying the infundibulum was bluntly dissected. The patient's cystic duct was visualized. The junction between the cystic duct common and hepatic duct was identified. The critical view of safety was achieved after blunt dissection. The cystic duct was then divided after placement of 3 12 mm clips on the patient's side and one on the specimen side. The cystic artery was identified and clipped as well. A small vessel was seen along the gallbladder fossa and clipped as well. The gallbladder was then removed from the liver bed using electrocautery. There was also a small possible duct of Luschka at the fundus of the gallbladder that was clipped. The gallbladder was then removed fr om the epigastric trocar site with an Endo Catch bag. The gallbladder fossa was irrigated with saline. There was no evidence of any bleeding or biliary drainage seen. The fascia at the 12 millimeter site was closed using a Ludwig- Valerio 0 Vicryl stitch. The trochars were then removed. The skin at all 4 sites was closed using a 4-0 Monocryl stitch. Skin glue was utilized on the incision sites. At the end of this procedure the sponge and needle counts were correct. DISPOSITION: Stable to the recovery room
[2024-04-07] MEDS: KETOROLAC 15 MG/ML 1 ML VIAL IVP SCH (18:32)
[2024-04-07] MEDS: AMPICILLIN-SULBACTAM 3 GM in SODIUM CHLORIDE 0.9% 100 ML IVPB SCH (21:23)
[2024-04-07] MEDS: HEPARIN SODIUM,PORCINE 5,000 UNIT/ML 1 ML VIAL SQ SCH (23:32)
[2024-04-08 08:56] LABS: African American GFR (CKD) >90 (>60 ml/min/1.73 sqM); Anion Gap 6 mmol/L; Blood Urea Nitrogen 4 mg/dL (7-17); Carbon Dioxide 28 mmol/L (22-30); Chloride 107 mmol/L (98-107); Glucose 121 mg/dL (74-99); Non-African American GFR(CKD) >90 (>60 ml/min/1.73 sqM); Sodium 141 mmol/L (137-145)
[2024-04-08] MEDS: PANTOPRAZOLE 40 MG/10 ML VIAL IV SCH (09:12)
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
[2024-04-08 18:18] LABS: BUN/Creat Ratio 7.57 Ratio (12.00-20.00); Blood Urea Nitrogen 5.3 mg/dL (9.0-27.0); Carbon Dioxide 23.9 mmol/L (21.6-31.8); Chloride 107 mmol/L (96-109); Glucose 98 mg/dL (70-110); Sodium 141 mmol/L (135-145)
[2024-04-08 18:19] LABS: ALT 24 U/L (8-44); AST 20 U/L (13-35); Albumin 3.6 g/dL (3.8-4.9); Albumin/Globulin Ratio 1.64 Ratio (1.60-3.17); Alkaline Phosphatase 69 U/L (41-126); Calcium 8.7 mg/dL (8.7-10.3); Globulin 2.2 g/dL (1.6-3.3); Total Bilirubin 0.4 mg/dL (0.3-1.2); Total Protein 5.8 g/dL (6.2-8.2)
[2024-04-08 18:31] LABS: Basophils # (A) 0.04 X 10*3/uL (0.00-0.10); Basophils % (A) 0.3 %; Eosinophils # (A) 0.01 X 10*3/uL (0.04-0.35); Eosinophils % (A) 0.1 %; HCT 40.3 % (37.2-46.3); HGB 12.6 g/dL (12.0-15.0); Lymphocytes # (A) 2.25 X 10*3/uL (0.90-5.00); MCH 27.9 pg (27.0-32.0); MCHC 31.3 g/dL (32.0-37.0); MCV 89.2 FL (80.0-97.0); Mean Platelet Volume 11.8 FL (9.5-12.2); Monocytes # (A) 0.51 X 10*3/uL (0.20-1.00); Monocytes % (A) 4.3 %; NRBC Per 100 WBC 0 X 10*3/uL (0.00-0.01); Neutrophils # (A) 9.01 X 10*3/uL (1.80-7.70); Platelet Count 243 X 10*3/uL (140-440); RBC 4.52 X 10*6/uL (4.10-5.20); RDW 12.4 % (11.5-14.5); WBC 11.85 X 10*3/uL (4.50-10.00)
[2024-04-08] MEDS: HYDROcodone/APAP 5-325MG 1 EACH TAB PO PRN (19:38)
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
[2024-04-09] MEDS: KETOROLAC 15 MG/ML 1 ML VIAL IVP SCH (14:23)
[2024-04-09] MEDS: SIMETHICONE 40 MG/0.6 ML DROPS 2,000 MG/30 ML BOTTLE PO SCH (17:17)
[2024-04-09] MEDS: ACETAMINOPHEN IV (For NPO) 1,000 MG in EMPTY BAG 1 BAG IVPB SCH (17:17)
[2024-04-09] MEDS: METOCLOPRAMIDE 5 MG/ML 2 ML VIAL IVP PRN (17:40)
[2024-04-09] MEDS: diazePAM 5 MG TAB PO STA (19:59)
[2024-04-09 21:03] VITALS: RESP 17
[2024-04-10] MEDS ORDERED: hydrOXYzine pamoate 25 MG CAP PO PRN (08:44)
[2024-04-10 10:02] LABS: BUN/Creat Ratio 9.29 Ratio (12.00-20.00); Blood Urea Nitrogen 6.5 mg/dL (9.0-27.0); Carbon Dioxide 25.9 mmol/L (21.6-31.8); Chloride 106 mmol/L (96-109); Glucose 102 mg/dL (70-110); Potassium 3.8 mmol/L (3.5-5.5); Sodium 141 mmol/L (135-145)
[2024-04-10 10:03] LABS: ALT 18 U/L (8-44); AST 17 U/L (13-35); Albumin 3.5 g/dL (3.8-4.9); Albumin/Globulin Ratio 1.67 Ratio (1.60-3.17); Alkaline Phosphatase 67 U/L (41-126); Calcium 8.1 mg/dL (8.7-10.3); Globulin 2.1 g/dL (1.6-3.3); Total Bilirubin 0.2 mg/dL (0.3-1.2); Total Protein 5.6 g/dL (6.2-8.2)
--- NOTE | 2024-04-10 12:09 | P.CONS ---
History of Present Illness - Reason for Consult Consult date: 04/10/24 medical management - Chief Complaint abdominal pain - History of Present Illness * 29-year-old patient with past medical history significant for hypertension, history of polysubstance, History of schizophrenia, bipolar use who presented to the hospital with complaints of abdominal pain * patient was noted to have acute cholecystitis and underwent cholecystectomy on 04/07/1204/07/2024 * at the time of presentation on admission patient was noted to have normal WBC count, hemoglobin and platelet count, serum chemistry showed potassium of 3.3 which was eventually corrected * liver profile at the time of presentation showed normal AST, ALT * medicine team consulted on postoperative day 2 for management of anxiety * at the time of evaluation follow-up blood work include CBC and CMP pending REVIEW OF SYSTEMS: CONSTITUTIONAL: No fever, no malaise, no fatigue. HEENT: No recent visual problems or hearing problems. Denied any sore throat. CARDIOVASCULAR: No chest pain, orthopnea, PND, no palpitations, no syncope. PULMONARY: No shortness of breath, no cough, no hemoptysis. GASTROINTESTINAL: postoperative abdominal pain NEUROLOGICAL: No headaches, no weakness, no numbness. anxious HEMATOLOGICAL: Denies any bleeding or petechiae. GENITOURINARY: Denies any burning micturition, frequency, or urgency. MUSCULOSKELETAL/RHEUMATOLOGICAL: Denies any joint pain, swelling, or any muscle pain. ENDOCRINE: Denies any polyuria or polydipsia. The rest of the 14-point review of systems is negative. PHYSICAL EXAMINATION: GENERAL: The patient is alert and oriented x3, not in any acute distress. Well developed, well nourished. HEENT: Pupils are round and equally reacting to light. EOMI. No scleral icterus. No conjunctival pallor. Normocephalic, atraumatic. No pharyngeal erythema. No thyromegaly. CARDIOVASCULAR: S1 and S2 present. No murmurs, rubs, or gallops. PULMONARY: Chest is clear to auscultation, no wheezing or crackles. ABDOMEN: Soft, Incisions clean dry intact. MUSCULOSKELETAL: No joint swelling or deformity. EXTREMITIES: No cyanosis, clubbing, or pedal edema. NEUROLOGICAL: Gross neurological examination did not reveal any focal deficits. SKIN: No rashes. Past Medical History Past Medical History: Heart Failure, Seizure Disorder Additional Past Medical History / Comment(s): She reported having a seizure 1 week ago and that she takes Depakote for that. lupus History of Any Multi-Drug Resistant Organisms: None Reported Past Surgical History: Orthopedic Surgery Additional Past Surgical History / Comment(s): rt arm Smoking Status: Current every day smoker, Vaper Medications and Allergies Home Medications Medication Instructions Recorded Confirmed Type oxyCODONE HCL [OxyIR] 5 mg PO Q6H PRN 3 Days #6 tab 04/08/24 Rx Allergies Allergy/AdvReac Type Severity Reaction Status Date / Time chocolate flavor Allergy Anaphylaxis Verified 04/07/24 15:48 rubbing alcohol Allergy Rash/Hives Uncoded 04/07/24 15:48 Physical Exam Vitals: Vital Signs Temp Pulse Resp BP Pulse Ox 04/10/24 01:50 98.3 F 88 17 140/98 98 04/09/24 19:09 98.0 F 90 17 125/89 98 04/09/24 13:46 98.0 F 91 18 129/75 98 Intake and Output 04/09/24 04/10/24 04/10/24 22:59 06:59 14:59 Other: Voiding Method Toilet # Voids 2 2 Results CBC & Chem 7: 04/08/24 12:22 04/10/24 05:33 Assessment and Plan Assessment: assessment and plan * acute cholecystitis s/p cholecystectomy * postoperative pain control * reactive leukocytosis postoperative * history of anxiety * history of depression * history of bipolar disorder * in regards to postoperative management will defer treatment, antibiotic plan to general surgery, diet to be advanced per primary team * continue with postprocedure DVT prophylaxis * in regards to history of behavioral health issues including anxiety, bipolar patient was seen by psychiatry in 2020 and was admitted at behavioral health unit. At that time patient was discharged on Depakote * patient started on hydroxyzine as needed for breakthrough anxiety would recommend outpatient follow-up with psychiatry * CODE STATUS is full code Time with Patient: Greater than 30
[2024-04-10 13:21] LABS: Basophils # (A) 0.05 X 10*3/uL (0.00-0.10); Basophils % (A) 0.7 %; Eosinophils # (A) 0.22 X 10*3/uL (0.04-0.35); HCT 38.5 % (37.2-46.3); HGB 12.3 g/dL (12.0-15.0); Lymphocytes # (A) 2.97 X 10*3/uL (0.90-5.00); Lymphocytes % (A) 41.1 %; MCH 27.9 pg (27.0-32.0); MCHC 31.9 g/dL (32.0-37.0); MCV 87.3 FL (80.0-97.0); Mean Platelet Volume 11.4 FL (9.5-12.2); Monocytes # (A) 0.36 X 10*3/uL (0.20-1.00); NRBC Per 100 WBC 0 X 10*3/uL (0.00-0.01); Neutrophils % (A) 49.9 %; Platelet Count 198 X 10*3/uL (140-440); RBC 4.41 X 10*6/uL (4.10-5.20); RDW 12.3 % (11.5-14.5); WBC 7.22 X 10*3/uL (4.50-10.00)
--- NOTE | 2024-04-10 14:27 | P.DS ---
Providers Date of admission: 04/07/24 14:42 Expected date of discharge: 04/10/24 Attending physician: Patricio Taveras Consults: 04/09/24 19:29 Consult Physician Routine Consulting Provider: Kai Rogel Consult Reason/Comments: medical management for anxiety Do you want consulting provider notified?: Already Contacted Primary care physician: Stated None Hospital Course: ASSESSMENT: 1. Acute cholecystitis. 2. Schizophrenia 3. Bipolar disorder 4. Intractable postoperative pain CHIEF COMPLAINT: Cholecystitis HISTORY OF PRESENT ILLNESS: The patient is a 29-year-old female status post cholecystectomy 04/07/2024. Patient had moderate abdominal pain yesterday. She is tolerating diet. No reports of nausea or vomiting. IV was placed back in for scheduled nonnarcotics. Her pain is well-controlled. No new complaints. She is tolerating full liquid diet. Repeat CBC and CMP were performed. ROS: No fevers or chills. No new chest pain. No productive sputum. History of schizophrenia, anxiety disorder, and bipolar disorder PHYSICAL EXAM: VITAL SIGNS: Reviewed CONSTITUTIONAL: Well developed and in no acute distress. EYES: Conjuctivae without sclera icterus. Extraocular movements grossly intact. HEAD, EARS, NOSE, THROAT: Moist buccal mucosa. Head is atraumatic, normocephalic. Hears conversational speech. No nasal drainage. RESPIRATORY: Non-labored respirations and equal bilateral excursions. CARDIOVASCULAR: Palpable 2+ radial pulses. ABDOMEN: Incisions clean dry intact. MUSCULOSKELETAL: No gross deformity of the lower extremities noted. No clubbing. No cyanosis. SKIN: Good skin turgor. Well perfused. Mild swelling left forearm. NEUROLOGIC: Cranial nerves II through XII grossly intact. No focal or lateralizing signs. PSYCH: Appropriate affect. Alert and oriented to person, place and time. CLINICAL LABS: Reviewed. CBC and CMP now normal today. PLAN: 1. Clinically patient has improved. May be discharged home with follow-up outpatient. Patient Condition at Discharge: Good Plan - Discharge Summary New Discharge Prescriptions: New oxyCODONE HCL [OxyIR] 5 mg PO Q6H PRN 3 Days #6 tab PRN Reason: Breakthrough Pain Discharge Medication List oxyCODONE HCL [OxyIR] 5 mg PO Q6H PRN 3 Days #6 tab 04/08/24 [Rx] Follow up Appointment(s)/Referral(s): Patricio Taveras MD [Medical Doctor] - 1 Week [facility] [NON-STAFF] - 1-2 days [facility] [NON-STAFF] - 1-2 days None,Stated [Primary Care Provider] - 1-2 days Patient Instructions/Handouts: Biliary Colic (ED), Low Fat Diet (ED), Laparoscopic Cholecystectomy (DC) Discharge/Stand Alone Forms: Area PCPs
[2024-04-10 14:45] VITALS: BP 145/73; PULSE 74; TEMP 98
== END 2024-04-10 18:10 | disposition home or self-care (01) ==
LOC: EC 11:43 → 6NMEDSUR 14:42 → 4SSUR 16:12
PROVIDERS: ADMIT Surgery; ATTEND Surgery
DX: K80.12 Calculus of gallbladder with acute and chronic cholecystitis without obstruction (principal); G89.18 Other acute postprocedural pain; I50.9 Heart failure, unspecified; G40.909 Epilepsy, unspecified, not intractable, without status epilepticus; M32.9 Systemic lupus erythematosus, unspecified; F20.9 Schizophrenia, unspecified; F31.9 Bipolar disorder, unspecified; F41.9 Anxiety disorder, unspecified; D72.829 Elevated white blood cell count, unspecified; R00.0 Tachycardia, unspecified; F17.290 Nicotine dependence, other tobacco product, uncomplicated; Z91.018 Allergy to other foods; Z91.048 Other nonmedicinal substance allergy status; Z87.898 Personal history of other specified conditions
CPT/HCPCS: 96372; 96376; 96361; 96374; 96375; 99285; 36415; 81025 ×2; 88304; 80053 ×3; 80048; 82150; 83690; 85025 ×3; 81003; 76705; 47562; G0378 ×5; J2250; J0330; J0780; J1644 ×2; J1100; J2710; J2765; J2405 ×2; J2003; J3010; J0295 ×4; J0131 ×2; J1885 ×4; J2704; J1171; J1596; J2470 ×2

== ENCOUNTER 2024-07-25 19:31 | Emergency (ER) | payer OTHER ==
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
[2024-07-25 20:24] LABS: Basophils % (A) 0 %; Eosinophils # (A) 0.1 k/uL (0-0.7); Eosinophils % (A) 0 %; HCT 49.8 % (34.0-46.0); HGB 16.5 gm/dL (11.4-16.0); Lymphocytes # (A) 0.8 k/uL (1.0-4.8); Lymphocytes % (A) 5 %; MCH 28.5 pg (25.0-35.0); MCHC 33.1 g/dL (31.0-37.0); Mean Platelet Volume 9.6; Monocytes # (A) 0.5 k/uL (0-1.0); Monocytes % (A) 4 %; Neutrophils # (A) 12.6 k/uL (1.3-7.7); Neutrophils % (A) 90 %; Platelet Count 140 k/uL (150-450); RDW 12.7 % (11.5-15.5)
[2024-07-25] MEDS: SODIUM CHLORIDE 0.9% 1,000 ML IV STA (20:31)
[2024-07-25] MEDS: ACETAMINOPHEN TAB 500 MG TAB PO STA (20:31)
[2024-07-25 21:55] LABS: Appearance,Urine Cloudy (Clear); Bacteria,Urine Moderate /hpf; Bilirubin,Urine Negative (Negative); Blood,Urine Small (Negative); Color,Urine Yellow; Glucose,Urine (UA) Negative (Negative); Ketones,Urine 2+ (Negative); Leukocyte Esterase,Urine Large (Negative); Mucus,Urine Rare /hpf; Nitrite,Urine Positive (Negative); PH, Urine 5.5 (5.0-8.0); Protein,Urine 1+ (Negative); RBC,Urine 34 /hpf (0-5); Specific Gravity,Urine 1.018 (1.001-1.035); Squamous Epithelial Cell,Urine 2 /hpf (0-4); Urobilinogen,Urine <2.0 mg/dL (<2.0); WBC,Urine >182 /hpf (0-5)
[2024-07-25 22:00] LABS: ALT 40 U/L (4-34); AST 35 U/L (14-36); African American GFR (CKD) >90 (>60 ml/min/1.73 sqM); Albumin 3.2 g/dL (3.5-5.0); Alkaline Phosphatase 98 U/L (38-126); Anion Gap 9 mmol/L; Blood Urea Nitrogen 9 mg/dL (7-17); Calcium 8.1 mg/dL (8.4-10.2); Carbon Dioxide 23 mmol/L (22-30); Chloride 101 mmol/L (98-107); Glucose 94 mg/dL (74-99); Lipase 18 U/L (23-300); Non-African American GFR(CKD) >90 (>60 ml/min/1.73 sqM); Potassium 3.1 mmol/L (3.5-5.1); Sodium 133 mmol/L (137-145); Total Bilirubin 1.2 mg/dL (0.2-1.3)
[2024-07-25] MEDS: cefTRIAXone IN SWFI 1,000 MG/10 ML SYRINGE IVP STA ×2 (22:27→23:12)
[2024-07-25] MEDS: LACTATED RINGERS 1,000 ML IV ONE (22:28)
[2024-07-25] MEDS: POTASSIUM CHLORIDE ER 20 MEQ TAB.ER PO STA (22:28)
[2024-07-25 22:32] VITALS: BP 120/75; PULSE 117; RESP 18; TEMP 99.7
[2024-07-25] MEDS: IBUPROFEN 800 MG TAB PO STA (22:44)
--- NOTE | 2024-07-25 22:47 | CT ---
EXAMINATION TYPE: CT abdomen pelvis wo con DATE OF EXAM: 07/25/2024 10:31 PM COMPARISON: CT abdomen pelvis most recent from 02/27/2024 CLINICAL INDICATION: Female, 29 years old with history of diffuse ab pain, fever; Abdominal pain, justin sea x3 days TECHNIQUE: Axial CT abdomen pelvis wo con;Sagittal and coronal reformats were created on a separate workstation. Contrast used: mL of , (none if empty) Oral contrast used: without Oral Contrast (none if empty) CT DLP: 373.6 mGycm, Automated exposure control for dose reduction was used. FINDINGS: LOWER CHEST: Mild pectus excavatum. ABDOMEN LIVER: Diffusely hypoattenuating parenchyma. GALLBLADDER AND BILE DUCTS: The gallbladder is surgically absent. PANCREAS: Unremarkable. SPLEEN: Unremarkable. ADRENAL GLANDS: Unremarkable. KIDNEYS AND URETERS: No evidence of hydronephrosis or obstructing renal calculus. Mild inflammation c hanges are seen on the left kidney which are asymmetric example includes series 201 image 52 Nonobstr ucting left 3 mm calculus. No right renal calculi. The ureters are poorly visualized due to technique .. PELVIS BLADDER: No evidence for wall thickening or mass given limitations of exam. REPRODUCTIVE: Unremarkable. ABDOMEN & PELVIS STOMACH AND BOWEL: No evidence of bowel obstruction. Redundant cecum which is positioned in the pelvi s. The appendix is thought to be visualized and within normal limits. PERITONEUM/RETROPERITONEUM: No evidence of pneumoperitoneum or free fluid. VASCULATURE: No evidence of aortic aneurysm. MUSCULOSKELETAL: No acute osseous abnormalities LYMPH NODES: No gross evidence for lymphadenopathy. SOFT TISSUE/ABDOMINAL WALL: Unremarkable IMPRESSION: 1. Suboptimal evaluation without IV or oral contrast. There appears to be left perinephric fat stran ding changes correlate with urinalysis correlate for ascending infection. No hydronephrosis of fillin g visualized. 2. Redundant cecum/colon located in the pelvis with moderate to large amount stool. 3. Nonobstructing left renal calculus. 4. Hepatic steatosis. 5. Appendix appears within normal limits. [facility], , 07/25/2024 10:45 PM
[2024-07-25 23:15] LABS: ALT 39 U/L (4-34); AST 32 U/L (14-36); African American GFR (CKD) >90 (>60 ml/min/1.73 sqM); Albumin 2.9 g/dL (3.5-5.0); Alkaline Phosphatase 97 U/L (38-126); Anion Gap 11 mmol/L; Blood Urea Nitrogen 8 mg/dL (7-17); Calcium 8.1 mg/dL (8.4-10.2); Carbon Dioxide 19 mmol/L (22-30); Chloride 102 mmol/L (98-107); Glucose 94 mg/dL (74-99); Non-African American GFR(CKD) >90 (>60 ml/min/1.73 sqM); Potassium 2.9 mmol/L (3.5-5.1); Sodium 132 mmol/L (137-145); Total Bilirubin 1.1 mg/dL (0.2-1.3); Total Protein 5.7 g/dL (6.3-8.2)
== END 2024-07-25 23:14 | disposition home or self-care (01) ==
LOC: EC 19:31
DX: N12 Tubulo-interstitial nephritis, not specified as acute or chronic (principal); N39.0 Urinary tract infection, site not specified; E87.1 Hypo-osmolality and hyponatremia; E87.6 Hypokalemia; B96.20 Unspecified Escherichia coli [E. coli] as the cause of diseases classified elsewhere; F17.290 Nicotine dependence, other tobacco product, uncomplicated; Z91.048 Other nonmedicinal substance allergy status; Z91.02 Food additives allergy status
CPT/HCPCS: 99284 ×2; 96374 ×2; 96376 ×2; 96361 ×4; 36415; 80053; 83605; 83690; 85025; 81001; 81025; 87040; 87086; 87077; 87186; 74176; J0696

== ENCOUNTER 2024-10-21 09:19 | Emergency (ER) | payer OTHER ==
[2024-10-21 09:24] VITALS: TEMP 98.2
--- NOTE | 2024-10-21 10:52 | ED ---
Chest Pain HPI - General Chief Complaint: Recheck/Abnormal Lab/Rx Stated Complaint: sunburn Time Seen by Provider: 10/21/24 09:21 Source: patient, RN notes reviewed Mode of arrival: EMS Limitations: no limitations - History of Present Illness Initial Comments: This is a 29-year-old female who presents to the emergency department for a sunburn, chest pain, and shortness of breath. Patient states that she had fallen asleep in the sun a couple of days ago and then went out in the sun the following day as well and ended up getting a sunburn, which she states is the worst on her back. This is increasingly painful and making her nauseous. However, she is also concerned because she reports a history of heart failure and states that her medication accidentally got thrown out and she has been unable to take any of her medication for several days. As a result she is starting to get chest pain/pressure and worsening shortness of breath. She is not currently established with a high man. MD Complaint: chest pain - Related Data Previous Rx's Medication Instructions Recorded oxyCODONE HCL [OxyIR] 5 mg PO Q6H PRN 3 Days #6 tab 04/08/24 Ibuprofen [Motrin] 800 mg PO Q6HR #30 tab 07/25/24 Ondansetron Odt [Zofran Odt] 4 mg PO Q8HR PRN #10 tab 07/25/24 Sulfamethox-Tmp 800-160Mg [Bactrim 1 each PO Q12HR 14 Days #28 tab 07/25/24 Ds] Benzocaine/Menthol Warren 1 applic TOPICAL TID PRN #56 gm 10/21/24 [Dermoplast Warren] hydrALAZINE HCL 10 mg PO QID #120 tab 10/21/24 lisinopriL [Prinivil] 10 mg PO DAILY #30 tab 10/21/24 Allergies Allergy/AdvReac Type Severity Reaction Status Date / Time chocolate flavor Allergy Anaphylaxis Verified 10/21/24 09:24 rubbing alcohol Allergy Rash/Hives Uncoded 10/21/24 09:24 Review of Systems ROS Statement: Those systems with pertinent positive or pertinent negative responses have been documented in the HPI. ROS Other: All systems not noted in ROS Statement are negative. Past Medical History Past Medical History: Heart Failure, Seizure Disorder Additional Past Medical History / Comment(s): She reported having a seizure 1 week ago and that she takes Depakote for that. lupus History of Any Multi-Drug Resistant Organisms: ESBL Date of last positivie culture/infection: 07/25/24 MDRO Source:: urine Past Surgical History: Orthopedic Surgery Additional Past Surgical History / Comment(s): rt arm Past Psychological History: Anxiety, Bipolar, Schizophrenia Smoking Status: Current every day smoker, Vaper Past Alcohol Use History: None Reported Past Drug Use History: None Reported General Exam Limitations: no limitations General appearance: alert, in no apparent distress Head exam: Present: atraumatic, normocephalic, normal inspection Respiratory exam: Present: normal lung sounds bilaterally. Absent: respiratory distress, wheezes, rales, rhonchi, stridor Cardiovascular Exam: Present: regular rate, normal rhythm Neurological exam: Present: alert, oriented X3, CN II-XII intact Psychiatric exam: Present: normal affect, normal mood Course Vital Signs 10/21/24 10/21/24 10/21/24 09:20 11:05 13:50 Temperature 98.2 F Pulse Rate 115 H 114 H 110 H Respiratory 20 15 16 Rate Blood Pressure 128/82 140/98 O2 Sat by Pulse 99 100 94 L Oximetry Chest Pain MDM - MDM This is a 29-year-old female who presents to the emergency department for chest pain, shortness of breath, and a sunburn. Was pt. sent in by a medical professional or institution? @ -No Did you speak to anyone other than the patient for history? @ -No Did you review nursing and triage notes? @ -Yes, and I agree, it is accurate with regards to the patient's symptoms. Were old charts reviewed? @ -No Differential Diagnosis? @ -Differential Chest Pain: Stable Angina, Unstable Angina, STEMI, NSTEMI Aortic Dissection, Pneumothorax, Musculoskeletal, Esophageal Spasm GERD, Cholecystitis, Pancreatitis, Zoster, this is not meant to be an all-inclusive list. EKG interpreted by me (3pts min.)? @ -EKG interpreted by me demonstrating the following: Sinus tachycardia. Ventricular rate 104 bpm, OR interval 110 ms, QRS duration 96 ms, QTc 390 ms. X-rays interpreted by me (1pt min.)? @ -Chest x-ray obtained, my interpretation identifies no localized consolid ations or infiltrates. CT interpreted by me (1pt min.)? @ -CTA of the chest obtained. My interpretation identifies no evidence of a pulmonary embolus. U/S interpreted by me (1pt. min.)? @ -Not obtained What testing was considered but not performed? (CT, X-rays, U/S, labs)? Why? @ -None What meds were considered but not given? Why? @ -None Did you discuss the management of the patient with other professionals? @ -No Did you reconcile home meds? @ -No Was smoking cessation discussed for >3mins.? @ -I discussed smoking cessation for greater than 3 minutes. The risk of smoking were discussed with the patient including but not limited to risks of cancer, stroke, coronary artery disease and COPD. Also discussed with patient were multiple methods of quitting smoking. Lastly we discussed the financial cost of smoking. Was critical care preformed (if so, how long)? @ -No Were there social determinants of health that impacted care today? How? (Homelessness, low income, unemployed, alcoholism, drug addiction, transportation, low edu. Level, literacy, decrease access to med. care, usp, rehab)? @ -No Was there de-escalation of care discussed even if they declined? (Discuss DNR or withdrawal of care, Hospice)? @ -No What co-morbidities impacted this encounter? (DM, HTN, Smoking, COPD, CAD, Cancer, CVA, Hep., AIDS, mental health diagnosis, sleep apnea, morbid obesity)? @ -Smoking Was patient admitted / discharged? @ -Discharged. Lab work demonstrates a mildly elevated D-dimer of 1.06. LFTs mildly elevated, which has been an issue for her in the past. Chest x-ray reveals no acute process. Given the elevated D-dimer, CTA of the chest was obtained. No evidence of a pulmonary embolus was identified. The pain for sunburn was controlled with Dermoplast spray. Lisinopril and hydralazine were refilled, which the patient reports were both recently lost. Refill on Zane moplast spray provided as well. Patient discharged home in stable condition and advised to make sure she follows up with a PCP. Case discussed with ED attending, Dr. Orozco. Return precautions reviewed in depth, the patient is instructed to return to the emergency department with any new, worsening, or concerning symptoms. Patient verbalized understanding. Undiagnosed new problem with uncertain prognosis? @ -None Drug Therapy requiring intensive monitoring for toxicity (Heparin, Nitro, Insulin, Cardizem)? @ -None Were any procedures done? @ -None Diagnosis/symptom? @ -Sunburn, chest pain, encounter for medication refill Acute, or Chronic, or Acute on Chronic? @ -Acute Uncomplicated (without systemic symptoms) or Complicated (systemic symptoms)? @ -Uncomplicated Side effects of treatment? @ -None Exacerbation, Progression, or Severe Exacerbation] @ -Not applicable Poses a threat to life or bodily function? @ -No Disposition Clinical Impression: Sunburn, Encounter for medication refill, Nicotine dependence, Chest pain Disposition: HOME SELF-CARE Instructions (If sedation given, give patient instructions): Sunburn (ED) Additional Instructions: Return to the emergency department with any new, worsening, or concerning symptoms. You can use the Dermoplast spray as needed for the pain. Begin taking your lisinopril and hydralazine again as prescribed. Make sure you become established with a primary care provider for ongoing care. Prescriptions: Benzocaine/Menthol Warren [Dermoplast Warren] 1 applic TOPICAL TID PRN #56 gm PRN Reason: Pain hydrALAZINE HCL 10 mg PO QID #120 tab lisinopriL [Prinivil] 10 mg PO DAILY #30 tab Is patient prescribed a controlled substance at d/c from ED?: No Referrals: None,Stated [Primary Care Provider] - 1-2 days Randa Mitchell MD [RESIDENT] - 1-2 days Forms: Area PCPs Time of Disposition: 14:14
[2024-10-21 11:07] VITALS: BP 140/98
[2024-10-21] MEDS: BENZOCAINE/MENTHOL SPRAY 1 GM/SPRAY AEROSOL TOPICAL STA (11:07)
[2024-10-21] MEDS: MORPHINE SULFATE 4 MG/ML SYRINGE IVP STA (11:09)
[2024-10-21] MEDS: ONDANSETRON 4 MG/2 ML VIAL IVP STA (11:10)
[2024-10-21 11:24] LABS: Basophils # (A) 0.06 10*3/uL (0.00-0.10); Basophils % (A) 0.6 %; Eosinophils # (A) 0.17 10*3/uL (0.04-0.35); Eosinophils % (A) 1.8 %; HCT 38.3 % (37.2-46.3); HGB 13.1 g/dL (12.0-15.0); Lymphocytes % (A) 20.7 %; MCH 29.3 pg (27.0-32.0); MCHC 34.2 g/dL (32.0-37.0); MCV 85.7 fL (80.0-97.0); Mean Platelet Volume 10.7 fL (9.5-12.2); Monocytes # (A) 0.56 10*3/uL (0.20-1.00); Monocytes % (A) 5.8 %; Neutrophils # (A) 6.84 10*3/uL (1.80-7.70); Neutrophils % (A) 70.7 %; Platelet Count 175 10*3/uL (140-440); RBC 4.47 10*6/uL (4.10-5.20); RDW 12.9 % (11.5-14.5); WBC 9.67 10*3/uL (4.50-10.00)
[2024-10-21 11:40] LABS: ALT 97 U/L (4-34); African American GFR (CKD) >90 (>60 ml/min/1.73 sqM); Albumin 3.9 g/dL (3.5-5.0); Anion Gap 9 mmol/L; Blood Urea Nitrogen 13 mg/dL (7-17); Calcium 8.4 mg/dL (8.4-10.2); Carbon Dioxide 20 mmol/L (22-30); Chloride 108 mmol/L (98-107); Glucose 89 mg/dL (74-99); Non-African American GFR(CKD) >90 (>60 ml/min/1.73 sqM); Sodium 137 mmol/L (137-145); Total Bilirubin 0.7 mg/dL (0.2-1.3); Total Protein 6.9 g/dL (6.3-8.2)
[2024-10-21 11:42] LABS: AST 85 U/L (14-36); Alkaline Phosphatase 89 U/L (38-126); Potassium 3.7 mmol/L (3.5-5.1)
--- NOTE | 2024-10-21 12:00 | XR ---
EXAMINATION TYPE: XR chest 2V DATE OF EXAM: 10/21/2024 11:51 AM COMPARISON: None. CLINICAL INDICATION: Female, 29 years old with history of Chest pain, TECHNIQUE: XR chest 2V view(s) obtained. FINDINGS: The heart size is normal. The pulmonary vasculature is normal. The lungs are clear. Note is made of pectus excavatum. IMPRESSION: 1. No acute pulmonary process. [facility], , 10/21/2024 11:58 AM
[2024-10-21 12:02] LABS: Influenza A Not Detected (Not Detectd); Influenza B Not Detected (Not Detectd); RSV Not Detected (Not Detectd)
[2024-10-21] MEDS: NITROGLYCERIN SL TABS 0.4 MG TAB SUBLINGUAL STA (12:36)
[2024-10-21 12:46] LABS: INR 0.9 (<1.2); Partial Thromboplastin Time 22.3 sec (22.0-30.0)
--- NOTE | 2024-10-21 13:31 | CT ---
EXAMINATION TYPE: CT chest angio for PE CT DLP: 240.7 mGycm, Automated exposure control for dose reduction was used. DATE OF EXAM: 10/21/2024 1:16 PM COMPARISON: Chest radiograph from same day. CLINICAL INDICATION:Female, 29 years old with history of SIMI, elevated d-dimer; SIMI, elevated D-dimer . TECHNIQUE/CONTRAST: CTA scan of the thorax is performed with IV Contrast, patient injected with 100 ml mL of Isovue 370, pulmonary embolism protocol. MIP images are created and reviewed. FINDINGS: Pulmonary Artery: There is no evidence for a filling defect within the pulmonary vasculature to sugge st acute pulmonary embolism. The pulmonary artery is of normal size. Lungs/Pleura: No evidence of focal consolidation, pleural effusion or pneumothorax. Couple of scatter ed pulmonary nodules. Examples including a right upper lobe 3.9 mm pulmonary nodule (series 406, imag e 70). And a left lower lobe 4.4 mm pulmonary nodule along the left major fissure (series 406, image 72). Minimal biapical pleural-parenchymal scarring. Airway: Large airways are patent. Heart: Size within normal limits. No significant coronary artery calcifications. Vasculature: No evidence of aortic aneurysm. Mediastinum: No evidence of adenopathy. Residual thymus identified. Musculoskeletal: No acute osseous abnormalities. Multilevel small Schmorl's nodes. Pectus excavatum i dentified with narrowest AP diameter between the sternum and vertebral body of 9.8 cm. Soft Tissues: Unremarkable. Lower neck: No significant findings. Upper Abdomen: Gallbladder is surgically absent. IMPRESSION: 1. No evidence of pulmonary embolism or acute thoracic process. 2. Couple of pulmonary nodules measuring less than 5 mm. According to Fleischner's criteria in a low risk patient no follow-up is recommended. In a high-risk patient consider optional CT chest in 12 mon ths. [facility], , 10/21/2024 1:28 PM
[2024-10-21 13:51] VITALS: PULSE 110; RESP 16
[2024-10-21] MEDS ORDERED: ACET/COD 300 MG/30 MG STARTER PACK 6 TAB BTL PO STA (14:09)
== END 2024-10-21 14:27 | disposition home or self-care (01) ==
LOC: EC 09:19
DX: L55.9 Sunburn, unspecified (principal); R07.9 Chest pain, unspecified; F17.290 Nicotine dependence, other tobacco product, uncomplicated; Z76.0 Encounter for issue of repeat prescription; Z91.018 Allergy to other foods; Z91.09 Other allergy status, other than to drugs and biological substances
CPT/HCPCS: 36415; 93005; 85379; 83880; 80053; 84484; 85025; 85610; 85730; 87636; 71046; 71275; 99284; 96374; 96375; J2270; J2405; Q9967